=== PATIENT | male | born 1935 | race Caucasian/White ===

== ENCOUNTER 2016-09-06 13:47 | Inpatient (IN) | payer MEDICARE, OTHER ==
[2016-09-06] MEDS ORDERED: NS 0.9% 1000 ML* 1,000 ML IV ONE (15:05)
[2016-09-06 15:18] LABS: Hematocrit 44 % (42-52); Hemoglobin 15.1 g/dl (14.0-18.0); Mean Corpuscular HGB Conc 34 g/dl (31-36); Mean Corpuscular Hemoglobin 31 pg (27-31); Mean Corpuscular Volume 91 fL (80-94); Mean Platelet Volume 9 um3 (7.4-10.4); Red Blood Count 4.86 10^6/ul (4.0-5.4); Red Cell Distribution Width 13 % (10.5-15); White Blood Count 8.6 10^3/ul (3.5-10.8)
[2016-09-06 15:32] LABS: Troponin I 0.01 ng/mL (<0.04)
[2016-09-06 15:37] LABS: Albumin 4.5 g/dL (3.2-5.2); BUN/Creatinine Ratio 32.7 (8-20); Calcium 9.9 mg/dL (8.6-10.3); EGFR African American 82.2 (>60); EGFR Non-African American 63.9 (>60); Globulin 3.4 g/dL (2-4); Potassium 4.4 mmol/L (3.5-5.0); Total Bilirubin 0.7 mg/dL (0.2-1.0); Total Protein 7.9 g/dL (6.4-8.9)
[2016-09-06] MEDS ORDERED: Iohexol 350* (CONTRAST) 500 ML MDV IV ONE (15:45)
[2016-09-06 15:50] LABS: Urine Bacteria Absent (Absent); Urine Bilirubin Negative (Negative); Urine Glucose 1+(50 mg/dL) (Negative); Urine Nitrite Negative (Negative)
[2016-09-06 16:06] LABS: HDL Cholesterol 35.9 mg/dL
--- NOTE | 2016-09-06 16:50 | RAD ---
Indication: Left leg weakness, headache. CT of the brain was performed without IV contrast. There is a large right sided subdural hematoma with acute and chronic components measuring up to 2.8 cm. Midline shift to the left is noted of approximately 11 mm. The left extra-axial spaces are unremarkable. The basilar cisterns are patent. Subfalcine herniation is noted anteriorly. IMPRESSION: There is a moderate to large size right-sided subdural hematoma which is mixed chronic and acute with midline shift towards the left of approximately 12 mm and subfalcine herniation. Findings discussed with Dr. Coelho at 1646 hours.
--- NOTE | 2016-09-06 16:59 | RAD ---
INDICATION: Left leg weakness COMPARISON: There are no prior studies available for comparison. TECHNIQUE: Contiguous axial sections were obtained beginning lower cervical vertebra and continuing through the sacrum. Images were reconstructed in the sagittal and coronal planes. FINDINGS: Multilevel degenerative changes of the thoracic and lumbar spine includes loss of intervertebral disc height. More severe degenerative changes are seen at L4/L5. At L2/L3 there are subchondral lucencies at the endplates that are nonspecific but in the absence of other destructive features are probably more consistent with Schmorl's nodes then intervertebral discitis (sagittal image 27 and 28). There is no definite fracture or dislocation. There is no hyperdense fluid in the thecal canal characteristic of hemorrhage. At the lumbar spine there are varying degrees of mild central canal or neural foraminal stenoses from L2 through L5 consistent with degenerative disc disease. There is atherosclerotic calcification of the abdominal aorta and bilateral visualized iliac arteries. There are emphysematous changes of the lungs. IMPRESSION: 1. Multilevel degenerative changes involving the thoracic and lumbar spine without definite fracture or dislocation. 2. Endplate lucencies at L2/L3 are more consistent with Schmorl's nodes then intervertebral discitis. 3. There are varying degrees of central canal or neural foraminal stenoses from L2 to L5 likely due to degenerative disc disease. Superior characterization of the soft tissues can be made with MRI of the lumbar spine if indicated.
--- NOTE | 2016-09-06 17:13 | RAD ---
Indication: Left leg weakness, headache. Contrast: Administered 83.3 ml of OMNIPAQUE 350 mg/ml CTA of the neck and head was performed after IV contrast administration. Coronal and sagittal reconstructed images were obtained. The great vessels demonstrates minimal atherosclerosis of the left subclavian artery. Innominate artery is otherwise unremarkable. The common carotid artery demonstrates no significant stenosis. The internal carotid artery demonstrates no dissection. No definite atherosclerosis is noted. Minimal calcific plaque is noted in the left carotid bulb. The intracranial carotid arteries demonstrates minimal atherosclerosis in the intracavernous portion of the carotid arteries. The anterior middle cerebral arteries are unremarkable. No aneurysmal dilatation or branch occlusion is identified. Right-sided subdural hematoma is again identified as previously described. IMPRESSION: Right-sided subdural hematoma. Minimal atherosclerosis of the left internal carotid artery. No branch occlusion is noted in the intracranial vessels. The the [place] is otherwise unremarkable with no aneurysmal dilatation.
[2016-09-06] MEDS ORDERED: Allopurinol TAB* 300 MG PO PRN (17:25)
--- NOTE | 2016-09-06 17:59 | RAD ---
Indication: Weakness. 2 views of the chest including dual energy PA views demonstrates no mediastinal shift. Lung borges appear hyperinflated. No pleural fluid, pneumonia or pneumothorax is noted. Comparison is made with previous exam dated March 23, 2010. IMPRESSION: NO ACTIVE CARDIOPULMONARY DISEASE IS NOTED.
--- NOTE | 2016-09-06 18:44 | HP ---
SUPERVISING PHYSICIAN ADDENDUM NOW INCLUDED ON THIS REPORT CC: Dr. Grimaldo * ADMISSION HISTORY AND PHYSICAL: DATE OF ADMISSION: 09/06/16 PRIMARY CARE PROVIDER: Dr. Grimaldo. ADMITTING PROVIDER: NAVEEN Islas. SUPERVISING PHYSICIAN: Connie Rodriguez MD.* (DICTATED BY NAVEEN ISLAS) CHIEF COMPLAINT: Left lower extremity weakness and headache. HISTORY OF PRESENT ILLNESS: This is an 81-year-old gentleman with hypertension , hyperlipidemia, gout, and nonalcoholic steatohepatitis who was referred from his primary care provider's office with complaints of left lower extremity weakness and headache. The patient states that he first noted the left leg weakness about a week ago and has had some difficulty with balance since that time, but has been having intermittent headaches for the last couple of weeks. He states there has been some discomfort in the back of his neck which he thought was contributing to his headaches. He has been intermittently dizzy, especially when going from a sitting to standing position. He denies any changes to his vision. Apart from his left lower extremity weakness, he denies any other acute neurologic changes. Denies chest pain or shortness of breath. No abdominal pain, nausea, or vomiting. No recent illness. He denies any recent trauma or even mild falls or head injury. The patient reports that he is quite active. He exercises nightly with an exercise bike. He has no significant cardiopulmonary history. PAST MEDICAL HISTORY: 1. Hypertension. 2. Hyperlipidemia. 3. Gout. 4. Nonalcoholic steatohepatitis. PAST SURGICAL HISTORY: 1. Left testicle removal for severe orchitis. 2. Tonsillectomy and adenoidectomy. HOME MEDICATIONS: 1. Allopurinol 150 mg p.o. daily. 2. Aspirin 81 mg p.o. daily. 3. Atorvastatin 20 mg p.o. daily. 4. Losartan/hydrochlorothiazide 100/25 mg 1 tablet p.o. daily. 5. Metoprolol succinate 50 mg p.o. daily. 6. Omeprazole 20 mg p.o. daily. 7. Viagra 100 mg p.o. daily as needed. SOCIAL HISTORY: The patient has a brief smoking history, but quit about 45 years ago. Reports only occasional alcohol consumption. He lives at home with his and is a retired communication electronic technician. REVIEW OF SYSTEMS: As noted above in HPI. All other systems are reviewed and considered negative. PHYSICAL EXAMINATION GENERAL: This is a very pleasant elderly gentleman accompanied by his and sister who is in no acute distress. RECENT VITAL SIGNS: Temperature 97.9 degrees Fahrenheit, pulse 80 beats per minute, respiratory rate 20 per minute, oxygen saturation 97% on room air, blood pressure 142/88 mmHg. HEENT: Head is normocephalic, atraumatic. Mucous membranes are pink and moist. He has dentures in place. NECK: Supple, free of lymphadenopathy without significant meningeal signs. RESPIRATORY: Lungs are clear to auscultation without wheezes, crackles, or rhonchi. CARDIOVASCULAR: Heart has a regular rate and rhythm without murmurs, rubs, or gallops. ABDOMEN: Soft and nontender to palpation. EXTREMITIES: The patient has no lower extremity edema. NEUROLOGIC: The patient has a facial tic which he states is chronic for him, especially when he is anxious. Cranial nerves II through XII are otherwise intact. He perhaps has some subtle left upper extremity weakness. No gross sensory changes. Left lower extremity is 4/5 and right lower extremity is 5/5 with DTRs intact and symmetric. PSYCH: The patient is alert and appropriately oriented. LABORATORY DATA: CBC shows white blood cell count of 8600, hemoglobin 15.1 g/dL , and platelet count of 185,000. INR is 0.99. Comprehensive metabolic panel shows a sodium of 136, potassium of 4.4, serum bicarb of 26, BUN 36, creatinine 1.1, random glucose of 188 mg/dL. Lactic acid slightly elevated at 2.5. Total bilirubin and transaminases within normal limits. Troponin negative. Lipids are well controlled with a total cholesterol of 168, LDL of 98, HDL of 35 , and triglycerides 171. Urinalysis shows 1+ blood, trace leukocyte esterase, and 2+ white blood cells. IMAGING: CT of the brain shows moderate to large right frontal subdural hematoma with a 12-mm midline shift. There appears to be both acute and subacute component. CT of the head also demonstrates the same hematoma, but no significant stenosis or aneurysmal changes. CT of the lumbar and thoracic spine shows degenerative changes diffusely, but nothing acute. EKG shows a normal sinus rhythm. Chest x-ray is pending. ASSESSMENT AND PLAN: This is an 81-year-old gentleman with hypertension, hyperlipidemia, gout, and nonalcoholic steatohepatitis who presents at the encouragement of his primary care provider with complaints of headache and left lower extremity weakness with evidence of a moderate to large subdural hematoma. 1. Subdural hematoma with subsequent left lower extremity weakness. Neurosurgeon, Dr. Newman, has been contacted who plans to do tavia hole evacuation tomorrow. The patient's neurologic symptoms are rather subtle at this time. He will be admitted to ICU for close monitoring. Blood pressure will be closely monitored and serial neurologic checks. 2. Preoperative evaluation - the patient has no significant cardiopulmonary disease. His chronic medical conditions appear to be optimized and his exercise tolerance is excellent, especially given his age. His RCRI is in the low risk category scoring only for this being a relatively high risk procedure. He has no other chronic medical conditions that are of significant concern. A chest x-ray is pending at this time, but review of his EKG upon admission is benign. 3. Hypertension - the patient is normotensive at this time. We will continue his home antihypertensives with the exception of his losartan and hydrochlorothiazide in the morning with pending surgical procedure. 4. Hyperlipidemia: Continue the statin. 5. Gout: Continue allopurinol. 6. Nonalcoholic steatohepatitis: No evidence of transaminitis or significant liver impairment. 7. Code status: The patient is full code. 8. Healthcare proxy is his . DISPOSITION: The patient is being admitted to the inpatient status to ICU for close monitoring with pending neurosurgery involvement tomorrow morning with Dr. Newman. NAVEEN ISLAS ADDENDUM: Mr. Weaver is an 81-year-old male who presented to the hospital complaining of headache and left-sided weakness and he was noted to have acute on chronic subdural hematoma. The patient is going to be admitted to the ICU. Dr. Newman was already consulted from Neurosurgery to take the patient to the OR for tavia hole tomorrow morning. For further details of the patient's admission and plan, please see history and physical dictated by NAVEEN Islas on , with which I agree. CONNIE RODRIGUEZ, [place] [id number]/CPS #: [id number] #: [id number] [facility]
--- NOTE | 2016-09-06 20:06 | ED ---
Nahomi Egan Thomas, scribed for Leonard Coelho MD on 09/06/16 at 1446 . Lower Extremity - HPI Summary HPI Summary: The pt is an 81 y/o male referred to the ED from his PCP. The pt says that his leg has been "heavy" for 3-4 days. He experiences difficulty when putting clothing on his L leg. Additionally c/o occasional urinary incontinence and RODNEY. The pt notes that he never experiences RODNEY but since 2 weeks ago he has experienced RODNEY that feels like "plugged sinuses". He also notes facial pain when he moves his head in a particular way. The pt denies arm pain, aphasia, back pain, abdominal pain, visual field loss, and dragging his feet when walking. PMHx HTN. The pt is a former smoker (quit 30 years ago). The pt rarely uses alcohol.. - History of Current Complaint Chief Complaint: EDExtremityLower Stated Complaint: LT LEG NUMBNESS/HEADACHE Hx Obtained From: Patient Onset of Pain: Days - 3-4 Onset/Duration: Days - 3-4 Severity Currently: None Pain Intensity: 0 - "Heavy" not pain Pain Scale Used: 0-10 Numeric Timing: Constant Associated Signs And Symptoms: Positive: Other - POS: Urinary incontinence, RODNEY, facial pain - Allergies/Home Medications Allergies/Adverse Reactions: Allergies Allergy/AdvReac Type Severity Reaction Status Date / Time No Known Allergies Allergy Verified 09/06/16 14:32 Home Medications: Home Medications Allopurinol TAB* [Zyloprim 300 MG TAB*] 150 mg PO DAILY PRN 09/06/16 [History Confirmed 09/06/16] Aspirin EC Low Dose* [Ecotrin EC Low Dose 81 MG*] 81 mg PO DAILY 09/06/16 [ History Confirmed 09/06/16] Atorvastatin* [Lipitor*] 20 mg PO QPM 09/06/16 [History Confirmed 09/06/16] Losartan/HCTZ 100/25 (NF) [Hyzaar 100/25 (NF)] 1 tab PO DAILY 09/06/16 [History Confirmed 09/06/16] Metoprolol Succinate XL TAB* [Toprol XL TAB*] 50 mg PO DAILY 09/06/16 [History Confirmed 09/06/16] Omeprazole CAP* [Prilosec CAP* 20 MG] 20 mg PO DAILY 06/22/17 [History Confirmed 09/06/16] Sildenafil Citrate [Viagra] 100 mg PO DAILY PRN 09/06/16 [History Confirmed ] PMH/Surg Hx/FS Hx/Imm Hx Previously Healthy: No Endocrine/Hematology History: Reports: Hx Diabetes Cardiovascular History: Reports: Hx Hypercholesterolemia, Hx Hypertension Musculoskeletal History: Reports: Hx Gout Infectious Disease History: No Infectious Disease History: Denies: Traveled Outside the [place] in Last 30 Days - Family History Known Family History: Positive: Hypertension - Social History Alcohol Use: Occasionally Substance Use Type: Reports: None Smoking Status (MU): Former Smoker Review of Systems Positive: Other - NEG: visual field loss Negative: Abdominal Pain Positive: incontinence - Urinary Musculoskeletal: Other - NEG: arm pain, back pain Positive: Other - POS: "Heavy" LLE Neurological: Other - POS: facial pain when moving head in a particular way; NEG : aphasia, feet dragging when walking Positive: Headache - "plugged sinuses" All Other Systems Reviewed And Are Negative: Yes Physical Exam - Summary Physical Exam Summary: The patient is well-nourished in no acute distress and in no acute pain. The skin is warm and dry and skin color reflects adequate perfusion. HEENT: The head is normocephalic and atraumatic. The pupils are equal and reactive. The conjunctivae are clear and without drainage. Nares are patent and without drainage. Mouth reveals moist mucous membranes and the throat is without erythema and exudate. The external ears are intact. The ear canals are patent and without drainage. The tympanic membranes are intact. Neck is supple with full range of motion and non-tender. There are no carotid bruits. There is no neck vein distension. Respiratory: Chest is non-tender. Lungs are clear to auscultation and breath sounds are symmetrical and equal. Cardiovascular: Pulses are 2+. Hear is regular rate and rhythm. There is no murmur or rub auscultated. There is no peripheral edema and pulses are symmetrical and equal. Abdomen: Hernia. The abdomen is soft and non-tender. There are normal bowel sounds heard in all four quadrants and there is no organomegaly palpated. Musculoskeletal: There is no back pain noted. Extremities are non-tender with full range of motion. There is good capillary refill. There is no peripheral edema or calf tenderness elicited. Neurological: No facial droop. No weakness or pronator drift in upper extremities. When LLE is picked up, it drifts back down. Able to heel-lacy and finger-nose. Motor weakness in LLE compared to the right. Speech is appropriate. Patient is alert and oriented to person, place and time. Cranial nerves are grossly intact. Deep tendon reflexes are symmetrical and equal in all four extremities. Psychiatric: The patient has an appropriate affect and does not exhibit any anxiety or depression. Triage Information Reviewed: Yes Vital Signs On Initial Exam: Initial Vitals Temp Pulse Resp BP Pulse Ox 97.9 F 80 20 142/88 97 09/06/16 13:56 09/06/16 13:56 09/06/16 13:56 09/06/16 13:56 09/06/16 13:56 Vital Signs Reviewed: Yes - [place] Coma Scale Coma Scale Total: 15 Diagnostics - Vital Signs Vital Signs Temp Pulse Resp BP Pulse Ox 09/06/16 14:20 17 09/06/16 14:18 137/76 09/06/16 14:15 97.8 F 80 18 141/79 98 09/06/16 13:56 97.9 F 80 20 142/88 97 - Laboratory Lab Results: Lab Results 09/06/16 09/06/16 09/06/16 Range/Units 15:05 15:05 15:05 WBC 8.6 (3.5-10.8) 10^3/ul RBC 4.86 (4.0-5.4) 10^6/ul Hgb 15.1 (14.0-18.0) g/dl Hct 44 (42-52) % MCV 91 (80-94) fL MCH 31 (27-31) pg MCHC 34 (31-36) g/dl RDW 13 (10.5-15) % Plt Count 185 (150-450) 10^3/ul MPV 9 (7.4-10.4) um3 Neut % (Auto) 68.5 (38-83) % Lymph % (Auto) 21.2 L (25-47) % [place] % (Auto) 7.1 (1-9) % Eos % (Auto) 1.7 (0-6) % Baso % (Auto) 1.5 (0-2) % Absolute Neuts (auto) 5.9 (1.5-7.7) 10^3/ul Absolute Lymphs (auto) 1.8 (1.0-4.8) 10^3/ul Absolute Monos (auto) 0.6 (0-0.8) 10^3/ul Absolute Eos (auto) 0.1 (0-0.6) 10^3/ul Absolute Basos (auto) 0.1 (0-0.2) 10^3/ul Absolute Nucleated RBC 0 10^3/ul Nucleated RBC % 0 INR (Anticoag Therapy) 0.99 (0.89-1.11) Sodium 136 (133-145) mmol/L Potassium 4.4 (3.5-5.0) mmol/L Chloride 100 L (101-111) mmol/L Carbon Dioxide 26 (22-32) mmol/L Anion Gap 10 (2-11) mmol/L BUN 36 H (6-24) mg/dL Creatinine 1.10 (0.67-1.17) mg/dL Est GFR ( Amer) 82.2 (>60) Est GFR (Non-Af Amer) 63.9 (>60) BUN/Creatinine Ratio 32.7 H (8-20) Glucose 188 H (70-100) mg/dL Lactic Acid (0.5-2.0) mmol/L Calcium 9.9 (8.6-10.3) mg/dL Total Bilirubin 0.70 (0.2-1.0) mg/dL AST 20 (13-39) U/L ALT 18 (7-52) U/L Alkaline Phosphatase 58 (34-104) U/L Troponin I 0.01 (<0.04) ng/mL Total Protein 7.9 (6.4-8.9) g/dL Albumin 4.5 (3.2-5.2) g/dL Globulin 3.4 (2-4) g/dL Albumin/Globulin Ratio 1.3 (1-3) Triglycerides 171 mg/dL Cholesterol 168 mg/dL LDL Cholesterol 98 mg/dL HDL Cholesterol 35.9 mg/dL Urine Color Urine Appearance Urine pH (5-9) Ur Specific [place] (1.010-1.030) Urine Protein (Negative) Urine Ketones (Negative) Urine Blood (Negative) Urine Nitrate (Negative) Urine Bilirubin (Negative) Urine Urobilinogen (Negative) Ur Leukocyte Esterase (Negative) Urine WBC (Auto) (Absent) Urine RBC (Auto) (Absent) Urine Bacteria (Absent) Hyaline Casts (Absent) Urine Glucose (Negative) 09/06/16 09/06/16 Range/Units 15:05 15:27 WBC (3.5-10.8) 10^3/ul RBC (4.0-5.4) 10^6/ul Hgb (14.0-18.0) g/dl Hct (42-52) % MCV (80-94) fL MCH (27-31) pg MCHC (31-36) g/dl RDW (10.5-15) % Plt Count (150-450) 10^3/ul MPV (7.4-10.4) um3 Neut % (Auto) (38-83) % Lymph % (Auto) (25-47) % [place] % (Auto) (1-9) % Eos % (Auto) (0-6) % Baso % (Auto) (0-2) % Absolute Neuts (auto) (1.5-7.7) 10^3/ul Absolute Lymphs (auto) (1.0-4.8) 10^3/ul Absolute Monos (auto) (0-0.8) 10^3/ul Absolute Eos (auto) (0-0.6) 10^3/ul Absolute Basos (auto) (0-0.2) 10^3/ul Absolute Nucleated RBC 10^3/ul Nucleated RBC % INR (Anticoag Therapy) (0.89-1.11) Sodium (133-145) mmol/L Potassium (3.5-5.0) mmol/L Chloride (101-111) mmol/L Carbon Dioxide (22-32) mmol/L Anion Gap (2-11) mmol/L BUN (6-24) mg/dL Creatinine (0.67-1.17) mg/dL Est GFR ( Amer) (>60) Est GFR (Non-Af Amer) (>60) BUN/Creatinine Ratio (8-20) Glucose (70-100) mg/dL Lactic Acid 2.5 H* (0.5-2.0) mmol/L Calcium (8.6-10.3) mg/dL Total Bilirubin (0.2-1.0) mg/dL AST (13-39) U/L ALT (7-52) U/L Alkaline Phosphatase (34-104) U/L Troponin I (<0.04) ng/mL Total Protein (6.4-8.9) g/dL Albumin (3.2-5.2) g/dL Globulin (2-4) g/dL Albumin/Globulin Ratio (1-3) Triglycerides mg/dL Cholesterol mg/dL LDL Cholesterol mg/dL HDL Cholesterol mg/dL Urine Color Yellow Urine Appearance Clear Urine pH 5.0 (5-9) Ur Specific [place] 1.018 (1.010-1.030) Urine Protein Negative (Negative) Urine Ketones Negative (Negative) Urine Blood 1+ H (Negative) Urine Nitrate Negative (Negative) Urine Bilirubin Negative (Negative) Urine Urobilinogen Negative (Negative) Ur Leukocyte Esterase Trace H (Negative) Urine WBC (Auto) 2+(11-20/hpf) H (Absent) Urine RBC (Auto) 2+(6-10/hpf) H (Absent) Urine Bacteria Absent (Absent) Hyaline Casts Present H (Absent) Urine Glucose 1+(50 mg/dl) H (Negative) Result Diagrams: 09/06/16 15:05 09/06/16 15:05 Lab Statement: Any lab studies that have been ordered have been reviewed, and results considered in the medical decision making process. - CT CT L-Spine CT Interpretation: Positive (See Comments) - 1. Multilevel degenerative changes involving the thoracic and lumbar spine without definite fracture or dislocation. 2. Endplate lucencies at L2/L3 are more consistent with Schmorl's nodes then intervertebral discitis. 3. There are varying degrees of central canal or neural foraminal stenoses from L2 to L5 likely due to degenerative disc disease. Superior characterization of the soft tissues can be made with MRI of the lumbar spine if indicated. CT Interpretation Completed By: Radiologist CT T-Spine CT Interpretation: Positive (See Comments) - 1. Multilevel degenerative changes involving the thoracic and lumbar spine without definite fracture or dislocation. 2. Endplate lucencies at L2/L3 are more consistent with Schmorl's nodes then intervertebral discitis. 3. There are varying degrees of central canal or neural foraminal stenoses from L2 to L5 likely due to degenerative disc disease. Superior characterization of the soft tissues can be made with MRI of the lumbar spine if indicated. CT Interpretation Completed By: Radiologist CT Brain CT Interpretation: Positive (See Comments) - There is a moderate to large size right-sided subdural hematoma which is mixed chronic and acute with midline shift towards the left of approximately 12 mm and subfalcine herniation. Findings discussed with Dr. Coelho at [address] Interpretation Completed By: Radiologist CTA Head CT Interpretation: Positive (See Comments) - Right-sided subdural hematoma. Minimal atherosclerosis of the left internal carotid artery. No branch occlusion is noted in the intracranial vessels. The [place] is otherwise unremarkable with no aneurysmal dilatation. CT Interpretation Completed By: Radiologist - EKG 1511 Cardiac Rate: NL - [address] Segment: Non-Specific - Non-specific ST changes EKG Interpretation: Poor R wave progression, LAD, no STEMI National Institutes Of Health - NIH Scale Level of Consciousness: Alert/Keenly Responsive Ask Patient the Month and His/Her Age: Both Correct Ask Pt to Open/Close Eyes and [place]chid Worker/Release Non-Paretic Hand: Both Correctly Best Gaze (Only Horizontal Eye Movement): Normal Visual Field Testing: No Visual Loss Facial Paresis-Pt to Smile & Close Eyes or [place] Symmetry: Normal/Symmetrical Motor Function - Right Arm: No Drift-Holds 10 Seconds Motor Function - Left Arm: No Drift-Holds 10 Seconds Motor Function - Right Leg: No Drift-Holds 10 Seconds Motor Function - Left Leg: Drifts LT 10 seconds Limb Ataxia-Must be out of Proportion to Weakness Present: Absent Sensory (Use Pinprick to Test Arms/Legs/Trunk/Face): Normal Best Language (Describe Picture, Name Items): No Aphasia Dysarthria (Read Several Words): Normal Extinction and Inattention: No Abnormality Total Score: 1 Lower Extremity Course/Dx - Course Assessment/Plan: The pt is an 81 y/o male referred to the ED from his PCP. The pt says that his leg has been "heavy" for 3-4 days. Additionally c/o occasional urinary incontinence and RODNEY. The pt notes that he never experiences RODNEY but since 2 weeks ago he has experienced RODNEY that feels like "plugged sinuses". He also notes facial pain when he moves his head in a particular way. The pt denies arm pain, aphasia, back pain, abdominal pain, visual field loss, and dragging his feet when walking. The pt is a former smoker (quit 30 years ago). The pt rarely uses alcohol. Reviewed old records extensively. EKG reveals no STEMI. CT L-Spine and CT T-Spine reveal "1. Multilevel degenerative changes involving the thoracic and lumbar spine without definite fracture or dislocation. 2. Endplate lucencies at L2/L3 are more consistent with Schmorl's nodes then intervertebral discitis. 3. There are varying degrees of central canal or neural foraminal stenoses from L2 to L5 likely due to degenerative disc disease. Superior characterization of the soft tissues can be made with MRI of the lumbar spine if indicated." Ct [place] reveals "There is a moderate to large size right-sided subdural hematoma which is mixed chronic and acute with midline shift towards the left of approximately 12 mm and subfalcine herniation. " CTA head reveals: "Right-sided subdural hematoma. Minimal atherosclerosis of the left internal carotid artery. No branch occlusion is noted in the intracranial vessels. The [place] is otherwise unremarkable with no aneurysmal dilatation." Discussed care of patient with Michael Bermudez who accepts pt for admission. Discussed care with Dr. Newman who agrees with hospitalist admission and agrees to later surgery. Pt will be admitted to hospitalist services with Dx of right subdural hematoma with 30 minutes of critical care time. Patient agrees and understands. - Diagnoses Differential Diagnosis/HQI/PQRI: Positive: Other - cva, intracerebral bleed, subdural hematoma, spinal stenosis, hnp Provider Diagnoses: right subdural hematoma - Physician Notifications Discussed Care Of Patient With: Michael Bermudez Time Discussed With Above Provider: 16:47 Instructed by Provider To: Other - Accepts pt for admission. Called out to Dr. Newman at 1648. Discussed care of patient with Dr. Newman at 1650 who agrees with admission of the patient and that he will operate later. - Critical Care Time Critical Care Time: 30-74 min - 30 minutes Discharge - Discharge Plan Condition: Stable Disposition: ADMITTED TO [facility] documentation as recorded by the Nahomi reyes Thomas accurately reflects the service I personally performed and the decisions made by me, Leonard Coelho MD.
[2016-09-06] MEDS: Atorvastatin* 20 MG TAB PO SCH (20:31)
[2016-09-06] MEDS ORDERED: Acetaminophen TAB* 325 MG ONE (23:40)
--- NOTE | 2016-09-07 02:50 | HP ---
HISTORY AND PHYSICAL:* ADDENDUM: Mr. Weaver is an 81-year-old male, who presented to the hospital complaining of headache and left-sided weakness and he was noted to have acute on chronic subdural hematoma. The patient is going to be admitted to the ICU. Dr. Newman was already consulted from Neurosurgery to take the patient to the OR for tavia hole tomorrow morning. For further details of the patient's admission and plan, please see history and physical dictated by NAVEEN Arrington on 09/04/16, with which I agree. [id number]/CPS #: [id number] MTDD
[2016-09-07 06:17] LABS: Hematocrit 43 % (42-52); Hemoglobin 14.5 g/dl (14.0-18.0); Mean Corpuscular HGB Conc 34 g/dl (31-36); Mean Corpuscular Hemoglobin 31 pg (27-31); Mean Corpuscular Volume 91 fL (80-94); Mean Platelet Volume 9 um3 (7.4-10.4); Red Blood Count 4.66 10^6/ul (4.0-5.4); Red Cell Distribution Width 13 % (10.5-15); White Blood Count 8.9 10^3/ul (3.5-10.8)
[2016-09-07 06:29] LABS: BUN/Creatinine Ratio 26.9 (8-20); EGFR African American 87.7 (>60); EGFR Non-African American 68.2 (>60); Potassium 4.6 mmol/L (3.5-5.0)
[2016-09-07] MEDS ORDERED: Phenytoin IV(*) 1,000 MG in NS 0.9% 250 ML* 250 ML IV ONE (07:50)
--- NOTE | 2016-09-07 07:50 | PN ---
Progress Note - Progress Note Date of Service: 09/07/16 SOAP: Subjective: [] Patient admitted last night with large right sided subdural Presented with headache and LLE weakness present for at least a week No history of trauma,no anticoagulants Objective: []Dense paresis LLE Awake ,alert Assessment: []CT shows large chronic SDH with shift Plan: []Preop discussion held with patient Proposed procedure of tavia hole drainage discussed in detail. Risks of surgery including bleeding, infection, numbness,seizures and potential need for further surgery discussed
--- NOTE | 2016-09-07 10:04 | PN ---
Subjective Date of Service: 09/07/16 Interval History: This is an 81 yo gentleman admitted yesterday with SDH. Patient reports he got good sleep last night, his RODNEY resolved with APAP. He denies new weakness. Nursing noted that he had a change in MS after receiving Dilantin bolus this am , given pre-operatively. Patient was lethargic and his eyes rolled back in his head, but was easily aroused and responsive. Objective Active Medications: Acetaminophen (Tylenol Tab*) 650 mg PO Q6H PRN PRN Reason: FEVER/PAIN Allopurinol (Zyloprim Tab*) 150 mg PO DAILY PRN PRN Reason: PAIN/INFLAMMATION Atorvastatin Calcium (Lipitor*) 20 mg PO QPM LUIS ANGEL Last Admin: 09/06/16 20:31 Dose: 20 mg Metoprolol Succinate (Toprol Xl Tab*) 50 mg PO DAILY LUIS ANGEL Omeprazole (Prilosec Cap*) 20 mg PO DAILY LUIS ANGEL Vital Signs: Temp Pulse Resp BP Pulse Ox 98.3 F 66 16 112/68 95 09/07/16 07:44 09/07/16 09:42 09/07/16 09:42 09/07/16 09:45 09/07/16 09:42 Oxygen Devices in Use Now: Nasal Cannula Appearance: Elderly gentleman who appears lethargic, but in NAD Neck: NL Appearance and Movements; NL JVP Respiratory: Symmetrical Chest Expansion and Respiratory Effort, Clear to Auscultation Cardiovascular: NL Sounds; No Murmurs; No JVD, RRR Abdominal: NL Sounds; No Tenderness; No Distention Extremities: No Edema Skin: No Rash or Ulcers Neurological: Alert and Oriented x 3, - - dense weakness of L side 1-2/5 strength in upper and lower extremities with some neglect Result Diagrams: 09/07/16 06:00 09/07/16 06:00 Additional Lab and Data: . Diagnostic Imaging: Ct brain - mod to lg R frontal SDH with 12mm midline shift CTA head - SDH, no sig stenosis, branch occlusion or aneurysm CXR - NAD EKG - NSR Assess/Plan/Problems-Billing Assessment: This is an 81 yo gentleman with HTN, HLD, gout and MARCELINO who presented with LLE weakness and RODNEY with SDH noted on CT. - Patient Problems (1) SDH (subdural hematoma) Comment: Mod to lg R frontal SDH with assoc edema and 12mm midline shift, appears to be subacute but evidence of additional new bleeding on CT Weakness as progressed overnight with some mental status changes this am that may be explained by sedation after receiving Dilantin load No seizure activity Plan for tavia hole with Dr Newman today (2) HTN (hypertension) Comment: Holding losartan/HCTZ perioperatively Cont BB Normotensive at this time (3) HLD (hyperlipidemia) (4) MARCELINO (nonalcoholic steatohepatitis) Comment: No evidence of significant liver impairment (5) Gout Comment: No active flare (6) Full code status (7) DVT prophylaxis Comment: SCDs, chemical prophylaxis contraindicated Status and Disposition: Inpatient. Pending neurosurgery intervention. Requires continued ICU care
--- NOTE | 2016-09-07 10:14 | PN ---
Progress Note - Progress Note Date of Service: 09/07/16 SOAP: Subjective: This is a 81 yo white male with HTN, hyperlipidemia, gout, nonalcoholic steatohepatitis, that presented with 7-10 days of L sided weakness and RODNEY with large right subdural hematoma on CT. He reports RODNEY has subsided with PRN Tylenol and that weakness has improved some since yesterday. Dr. Newman in to talk with patient for planned surgery this morning for tavia hole drainage. He denies pain, numbness/tingling, changes in vision. He has noticed dizziness with turning his head quickly and getting up. He remains in ICU with VS stable. Active medications: Acetaminophen (Tylenol Tab*) 650 mg PO Q6H PRN PRN Reason: FEVER/PAIN Allopurinol (Zyloprim Tab*) 150 mg PO DAILY PRN PRN Reason: PAIN/INFLAMMATION Atorvastatin Calcium (Lipitor*) 20 mg PO QPM [facility] Last Admin: 09/06/16 20:31 Dose: 20 mg Metoprolol Succinate (Toprol Xl Tab*) 50 mg PO DAILY [facility] Omeprazole (Prilosec Cap*) 20 mg PO DAILY [facility] Allergies Allergy/AdvReac Type Severity Reaction Status Date / Time No Known Allergies Allergy Verified 09/06/16 14:32 Objective: Vital Signs: Temp Pulse Resp BP Pulse Ox 98.3 F 66 16 112/68 95 09/07/16 07:44 09/07/16 09:42 09/07/16 09:42 09/07/16 09:45 09/07/16 09:42 General: 81 yo male appears stated age in NAD. HEENT: Head is atraumatic, normocephalic. Mucus membranes are pink and moist with dentures removed for surgery. Lungs: Chest symmetric and lungs clear to auscultation throughout. Heart: RRR no murmurs, rubs, or gallops. Abdomen: normoactive bowel sounds, soft and nontender Extremities: Warm without edema Neuro: Alert and Oriented X3. Pupils are reactive to direct and consensual light. EOMI. Finger to nose intact. Sensation intact bilaterally. 3/5 weakness on left side arm, leg, and hand throughout. Strength is 5/5 on the right. Romberg and pronator drift negative. WBC 8.9 10^3/ul (3.5-10.8) 09/07/16 06:00 RBC 4.66 10^6/ul (4.0-5.4) 09/07/16 06:00 Hgb 14.5 g/dl (14.0-18.0) 09/07/16 06:00 Hct 43 % (42-52) 09/07/16 06:00 MCV 91 fL (80-94) 09/07/16 06:00 MCH 31 pg (27-31) 09/07/16 06:00 MCHC 34 g/dl (31-36) 09/07/16 06:00 RDW 13 % (10.5-15) 09/07/16 06:00 Plt Count 159 10^3/ul (150-450) 09/07/16 06:00 MPV 9 um3 (7.4-10.4) 09/07/16 06:00 Neut % (Auto) 68.5 % (38-83) 09/06/16 15:05 Lymph % (Auto) 21.2 % (25-47) L 09/06/16 15:05 Edmunds % (Auto) 7.1 % (1-9) 09/06/16 15:05 Eos % (Auto) 1.7 % (0-6) 09/06/16 15:05 Baso % (Auto) 1.5 % (0-2) 09/06/16 15:05 Absolute Neuts (auto) 5.9 10^3/ul (1.5-7.7) 09/06/16 15:05 Absolute Lymphs (auto) 1.8 10^3/ul (1.0-4.8) 09/06/16 15:05 Absolute Monos (auto) 0.6 10^3/ul (0-0.8) 09/06/16 15:05 Absolute Eos (auto) 0.1 10^3/ul (0-0.6) 09/06/16 15:05 Absolute Basos (auto) 0.1 10^3/ul (0-0.2) 09/06/16 15:05 Absolute Nucleated RBC 0 10^3/ul 09/06/16 15:05 Nucleated RBC % 0 09/06/16 15:05 INR (Anticoag Therapy) 0.99 (0.89-1.11) 09/06/16 15:05 Sodium 137 mmol/L (133-145) 09/07/16 06:00 Potassium 4.6 mmol/L (3.5-5.0) 09/07/16 06:00 Chloride 102 mmol/L (101-111) 09/07/16 06:00 Carbon Dioxide 26 mmol/L (22-32) 09/07/16 06:00 Anion Gap 9 mmol/L (2-11) 09/07/16 06:00 BUN 28 mg/dL (6-24) H 09/07/16 06:00 Creatinine 1.04 mg/dL (0.67-1.17) 09/07/16 06:00 Est GFR ( Amer) 87.7 (>60) 09/07/16 06:00 Est GFR (Non-Af Amer) 68.2 (>60) 09/07/16 06:00 BUN/Creatinine Ratio 26.9 (8-20) H 09/07/16 06:00 Glucose 189 mg/dL (70-100) H 09/07/16 06:00 Hemoglobin A1c 8.0 % (Less than 6.0) H 09/06/16 15:05 Lactic Acid 1.6 mmol/L (0.5-2.0) 09/07/16 00:30 Calcium 10.0 mg/dL (8.6-10.3) 09/07/16 06:00 Total Bilirubin 0.70 mg/dL (0.2-1.0) 09/06/16 15:05 AST 20 U/L (13-39) 09/06/16 15:05 ALT 18 U/L (7-52) 09/06/16 15:05 Alkaline Phosphatase 58 U/L (34-104) 09/06/16 15:05 Troponin I 0.01 ng/mL (<0.04) 09/06/16 15:05 Total Protein 7.9 g/dL (6.4-8.9) 09/06/16 15:05 Albumin 4.5 g/dL (3.2-5.2) 09/06/16 15:05 Globulin 3.4 g/dL (2-4) 09/06/16 15:05 Albumin/Globulin Ratio 1.3 (1-3) 09/06/16 15:05 Triglycerides 171 mg/dL 09/06/16 15:05 Cholesterol 168 mg/dL 09/06/16 15:05 LDL Cholesterol 98 mg/dL 09/06/16 15:05 HDL Cholesterol 35.9 mg/dL 09/06/16 15:05 Urine Color Yellow 09/06/16 15:27 Urine Appearance Clear 09/06/16 15:27 Urine pH 5.0 (5-9) 09/06/16 15:27 Ur Specific [place] 1.018 (1.010-1.030) 09/06/16 15:27 Urine Protein Negative (Negative) 09/06/16 15:27 Urine Ketones Negative (Negative) 09/06/16 15:27 Urine Blood 1+ (Negative) H 09/06/16 15:27 Urine Nitrate Negative (Negative) 09/06/16 15:27 Urine Bilirubin Negative (Negative) 09/06/16 15:27 Urine Urobilinogen Negative (Negative) 09/06/16 15:27 Ur Leukocyte Esterase Trace (Negative) H 09/06/16 15:27 Urine WBC (Auto) 2+(11-20/hpf) (Absent) H 09/06/16 15:27 Urine RBC (Auto) 2+(6-10/hpf) (Absent) H 09/06/16 15:27 Urine Bacteria Absent (Absent) 09/06/16 15:27 Hyaline Casts Present (Absent) H 09/06/16 15:27 Urine Glucose 1+(50 mg/dl) (Negative) H 09/06/16 15:27 CXR: NAD Head CTA: R moderate to large subdural, with no occlusions head CT: Large R subdural with midline shift towards the left approximately 12 mm. EKG: Normal sius rhythm Assessment/ Plan: This is a 81 yo white male with HTN, hyperlipidemia, gout, nonalcoholic steatohepatitis, that presented with 7-10 days of L sided weakness and RODNEY with large right subdural hematoma on CT 1) Right subdural hematoma: Large subdural on the right side with 12 mm midline shift. Plan on surgery today with Dr. Newman for tavia hole drainage. Weakness and RODNEY since improved since overnight. 2) HTN: Hold patient's Losartan/HCTZ at this time VS are currently WNL. Cont Metoprolol 3) Hyperlipidemia: Cont Statin. 4) Gout: Cont Allopurinol. No active flare 5) Nonalcoholic steatohepatitis: Liver function WNL 6) DVT Prophylaxis: CI pending surgical intervention. 7) Code Status: Full code Disposition: Surgical intervention and reture to ICU.
[2016-09-07] MEDS ORDERED: Thrombin 5,000 UNITS* 1 APPLIC KIT - topical use - TOPICAL ONE (10:21)
[2016-09-07] MEDS ORDERED: Lidocaine 1% MPF wEPI 200,000* 30 ML SDV ONE (10:21)
[2016-09-07] MEDS ORDERED: ceFAZolin 2 GM PREMIX(*) 2 GM/50 ML BAG IVPB ONE (10:39)
[2016-09-07] MEDS ORDERED: Remifentanil* 2 MG VIAL ONE (11:02)
[2016-09-07] MEDS ORDERED: fentaNYL* 50 MCG/ML 2 ML VIAL (100 MCG VIAL) ONE (11:02)
[2016-09-07] MEDS ORDERED: Rocuronium* 10 MG/ML VIAL ONE (11:02)
[2016-09-07] MEDS ORDERED: Succinylcholine* 20 MG/ML 10 ML VIAL ONE (11:02)
[2016-09-07] MEDS ORDERED: Lidocaine 2% PF * 5 ML VIAL ONE ×2 (11:02→11:06)
[2016-09-07] MEDS ORDERED: Propofol* 10 MG/ML 20 ML BTL IV PUSH ONE (11:02)
[2016-09-07] MEDS: Omeprazole CAP* 20 MG PO SCH (11:35)
[2016-09-07] MEDS: Metoprolol Succinate XL TAB* 50 MG PO SCH (11:35)
[2016-09-07] MEDS ORDERED: Phenylephrine IV* 40 MCG/ML 10 ML SYRINGE ONE (11:36)
[2016-09-07] MEDS ORDERED: EPHEDrine (Pressors)* 50 MG/ML VIAL ONE (11:56)
[2016-09-07] MEDS ORDERED: HYDROcodone/ACETAMIN 5-325 MG* 1 TAB PO PRN (12:17)
[2016-09-07] MEDS ORDERED: Morphine INJ* 2 MG/ML 1 ML SYRINGE IV PRN (12:18)
[2016-09-07] MEDS ORDERED: Acetaminophen TAB* 325 MG PO PRN (12:47)
[2016-09-07] MEDS ORDERED: Ondansetron INJ* 2 MG/ML VIAL IV PRN ×2 (12:47→13:19)
[2016-09-07] MEDS: Phenytoin CAP(*) 100 MG CAP.ER PO SCH ×2 (14:29→21:14)
[2016-09-07 15:02] LABS: BUN/Creatinine Ratio 24.7 (8-20); Calcium 9.1 mg/dL (8.6-10.3); EGFR African American 95.1 (>60); EGFR Non-African American 73.9 (>60); Potassium 4.2 mmol/L (3.5-5.0)
--- NOTE | 2016-09-07 15:16 | PN ---
Hospitalist Progress Note Patient was re-evaluated postoperatively. He was alert without c/o RODNEY. He had near full strength in previously affected extremities. No new complaints.
[2016-09-07] MEDS: Acetaminophen TAB* 325 MG PO PRN ×2 (16:34→22:45)
[2016-09-07] MEDS: Atorvastatin* 20 MG TAB PO SCH (21:14)
[2016-09-08 05:56] LABS: BUN/Creatinine Ratio 19.3 (8-20); Calcium 9.4 mg/dL (8.6-10.3); EGFR African American 106.4 (>60); EGFR Non-African American 82.7 (>60)
[2016-09-08] MEDS: Acetaminophen TAB* 325 MG PO PRN ×3 (07:22→21:08)
[2016-09-08] MEDS: Omeprazole CAP* 20 MG PO SCH (07:23)
[2016-09-08] MEDS: Phenytoin CAP(*) 100 MG CAP.ER PO SCH ×3 (07:23→21:08)
[2016-09-08] MEDS: Metoprolol Succinate XL TAB* 50 MG PO SCH (07:24)
--- NOTE | 2016-09-08 07:41 | PN ---
Subjective Date of Service: 09/08/16 Interval History: Mild headache relieved by APAP. Pt feels L leg at about full strength. No new c/o. Objective Active Medications: Acetaminophen (Tylenol Tab*) 650 mg PO Q6H PRN PRN Reason: FEVER/PAIN Last Admin: 09/08/16 07:22 Dose: 650 mg Hydrocodone Bitart/Acetaminophen ([place] 5-325 Tab*) 1 tab PO Q4H PRN PRN Reason: PAIN Allopurinol (Zyloprim Tab*) 150 mg PO DAILY PRN PRN Reason: PAIN/INFLAMMATION Atorvastatin Calcium (Lipitor*) 20 mg PO QPM [facility] Last Admin: 09/07/16 21:14 Dose: 20 mg Lactated Ringer's (Lactated Ringers 1000 Ml Bag*) 1,000 mls @ 75 mls/hr IV PER RATE [facility] Last Admin: 09/08/16 03:10 Dose: 75 mls/hr Metoprolol Succinate (Toprol Xl Tab*) 50 mg PO DAILY [facility] Last Admin: 09/08/16 07:24 Dose: 50 mg Morphine Sulfate (Morphine Inj (Syringe)*) 2 mg IV Q4H PRN PRN Reason: PAIN - MILD Omeprazole (Prilosec Cap*) 20 mg PO DAILY [facility] Last Admin: 09/08/16 07:23 Dose: 20 mg Ondansetron HCl (Zofran Inj*) 4 mg IV Q6H PRN PRN Reason: NAUSEA Phenytoin Sodium (Dilantin Cap(*)) 100 mg PO TID [facility] Last Admin: 09/08/16 07:23 Dose: 100 mg Vital Signs 09/07/16 09/07/16 09/07/16 07:44 08:00 09:00 Temperature 98.3 F Pulse Rate 87 81 Respiratory 18 18 Rate Blood Pressure 143/90 133/85 (mmHg) O2 Sat by Pulse 97 98 Oximetry 09/07/16 09/07/16 09/07/16 09:38 09:42 09:45 Temperature Pulse Rate 67 66 Respiratory 20 16 Rate Blood Pressure 118/66 117/63 112/68 (mmHg) O2 Sat by Pulse 92 95 Oximetry 09/07/16 09/07/16 09/07/16 10:00 10:15 10:30 Temperature Pulse Rate 65 71 65 Respiratory 14 14 17 Rate Blood Pressure 120/53 129/64 125/63 (mmHg) O2 Sat by Pulse 95 97 98 Oximetry 09/07/16 09/07/16 09/07/16 10:45 11:00 12:23 Temperature Pulse Rate 67 72 Respiratory 18 17 Rate Blood Pressure 123/63 126/66 141/79 (mmHg) O2 Sat by Pulse 98 99 Oximetry 09/07/16 09/07/16 09/07/16 12:28 12:30 12:35 Temperature 98.6 F Pulse Rate 91 92 89 Respiratory 18 16 19 Rate Blood Pressure 137/78 128/71 139/80 (mmHg) O2 Sat by Pulse 99 98 98 Oximetry 09/07/16 09/07/16 09/07/16 12:40 12:45 13:00 Temperature Pulse Rate 89 85 87 Respiratory 23 17 22 Rate Blood Pressure 140/81 139/71 131/73 (mmHg) O2 Sat by Pulse 100 99 98 Oximetry 09/07/16 09/07/16 09/07/16 13:15 13:30 13:40 Temperature Pulse Rate 83 87 89 Respiratory 17 19 18 Rate Blood Pressure 132/73 120/74 120/74 (mmHg) O2 Sat by Pulse 98 97 99 Oximetry 09/07/16 09/07/16 09/07/16 13:45 14:00 14:15 Temperature Pulse Rate 89 88 90 Respiratory 20 18 18 Rate Blood Pressure 134/71 145/74 134/77 (mmHg) O2 Sat by Pulse 99 98 98 Oximetry 09/07/16 09/07/16 09/07/16 14:30 15:00 15:29 Temperature 97.8 F Pulse Rate 95 96 Respiratory 21 17 Rate Blood Pressure 132/85 136/90 (mmHg) O2 Sat by Pulse 98 98 Oximetry 09/07/16 09/07/16 09/07/16 15:30 16:00 17:00 Temperature Pulse Rate 92 91 88 Respiratory 16 18 14 Rate Blood Pressure 134/76 126/70 142/80 (mmHg) O2 Sat by Pulse 95 97 97 Oximetry 09/07/16 09/07/16 09/07/16 18:00 19:00 19:37 Temperature 98.8 F Pulse Rate 85 91 Respiratory 18 24 Rate Blood Pressure 138/82 146/116 (mmHg) O2 Sat by Pulse 97 98 Oximetry 09/07/16 09/07/16 09/07/16 20:00 21:00 22:00 Temperature Pulse Rate 87 94 89 Respiratory 14 17 14 Rate Blood Pressure 150/82 156/87 155/90 (mmHg) O2 Sat by Pulse 97 98 96 Oximetry 09/07/16 09/08/16 09/08/16 23:00 00:00 00:01 Temperature 99.3 F Pulse Rate 95 85 85 Respiratory 22 20 20 Rate Blood Pressure 155/93 140/90 (mmHg) O2 Sat by Pulse 95 97 96 Oximetry 09/08/16 09/08/16 09/08/16 00:18 01:00 02:00 Temperature Pulse Rate 82 81 85 Respiratory 18 16 20 Rate Blood Pressure 142/97 143/89 (mmHg) O2 Sat by Pulse 98 96 95 Oximetry 09/08/16 09/08/16 09/08/16 03:00 04:00 05:00 Temperature 99.5 F Pulse Rate 83 85 Respiratory 14 23 18 Rate Blood Pressure 149/88 154/91 (mmHg) O2 Sat by Pulse 97 96 Oximetry 09/08/16 09/08/16 09/08/16 05:13 05:26 06:00 Temperature Pulse Rate 102 93 93 Respiratory 18 19 25 Rate Blood Pressure 149/87 157/81 (mmHg) O2 Sat by Pulse 94 93 92 Oximetry Oxygen Devices in Use Now: None Appearance: Alert, head partly up in ICU bed. In good spirits. Looks comfortable. Eyes: No Scleral Icterus Ears/Nose/Mouth/Throat: Clear Oropharnyx, - - Subdural drain R side of head Neck: NL Appearance and Movements; NL JVP, No Thyroid Enlargement, Masses Respiratory: Symmetrical Chest Expansion and Respiratory Effort, Clear to Auscultation, Clear to Percussion Cardiovascular: NL Sounds; No Murmurs; No JVD, RRR, No Edema, - Extremities: No Edema, No Clubbing, Cyanosis, - Neurological: Alert and Oriented x 3, NL Sensation - Full strength both legs. L interactive media director sl weaker than R. No tremor. Result Diagrams: 09/07/16 06:00 09/08/16 05:25 Additional Lab and Data: . Diagnostic Imaging: Ct brain - mod to lg R frontal SDH with 12mm midline shift CTA head - SDH, no sig stenosis, branch occlusion or aneurysm CXR - NAD EKG - NSR Assess/Plan/Problems-Billing Assessment: This is an 81 yo gentleman with HTN, HLD, gout and MARCELINO who presented with LLE weakness and RODNEY with SDH noted on CT. - Patient Problems (1) SDH (subdural hematoma) Current Visit: Yes Status: Acute Code(s): I62.00 - NONTRAUMATIC SUBDURAL HEMORRHAGE, UNSPECIFIED SNOMED Code(s): 30304121 Comment: Good result from tavia hole evacuation. Continue prophylactic phenytoin. (2) HTN (hypertension) Current Visit: Yes Status: Acute Code(s): I10 - ESSENTIAL (PRIMARY) HYPERTENSION SNOMED Code(s): 93671524 Comment: Add losartan at half his home dose. Hold thiazide. Not Na+ 132. (3) HLD (hyperlipidemia) Current Visit: Yes Status: Acute Code(s): E78.5 - HYPERLIPIDEMIA, UNSPECIFIED SNOMED Code(s): 06299471 Comment: Continue statin. (4) Gout Current Visit: Yes Status: Acute Code(s): M10.9 - GOUT, UNSPECIFIED SNOMED Code(s): 63819909 Comment: Continue allopurinol. (5) MARCELINO (nonalcoholic steatohepatitis) Current Visit: Yes Status: Acute Code(s): K75.81 - NONALCOHOLIC STEATOHEPATITIS (MARCELINO) SNOMED Code(s): 734721423 Comment: No evidence of significant liver impairment. INR wnl 09/06/16. Status and Disposition: Inpatient. Pending neurosurgery intervention. Requires continued ICU care
--- NOTE | 2016-09-08 08:10 | RAD ---
INDICATION: Right subdural hematoma status post drainage. COMPARISON: Comparison is made with a prior CT of the brain from September 06, 2016. TECHNIQUE: Contiguous axial sections of the brain were obtained from the skull base to the vertex without contrast. FINDINGS: There is a subdural hematoma present on the right side adjacent to the right frontal and parietal lobes. The patient is status post placement of a tavia hole in the right frontal bone and a subdural drain. There are both acute and chronic hemorrhagic components present and air within the subdural collection. The subdural collection measures up to 1.8 cm in thickness and has decreased from the prior exam and previously measured 2.8 cm in thickness. There is mass effect with compression of the right lateral ventricle and approximately 0.6 cm of subfalcine herniation which has improved significantly from the prior exam and previously measured 1.2 cm. IMPRESSION: STATUS POST PLACEMENT OF A DRAIN IN THE RIGHT SUBDURAL HEMATOMA WITH INTERVAL DECREASE IN SIZE OF THE HEMATOMA AND THE DEGREE OF SUBFALCINE HERNIATION DESCRIBED.
[2016-09-08] MEDS: Losartan TAB* 25 MG PO SCH (08:50)
[2016-09-08] MEDS: Atorvastatin* 20 MG TAB PO SCH (17:50)
[2016-09-09 06:25] LABS: BUN/Creatinine Ratio 21.3 (8-20); Calcium 9.4 mg/dL (8.6-10.3); EGFR Non-African American 81.6 (>60); Potassium 4.1 mmol/L (3.5-5.0)
--- NOTE | 2016-09-09 07:52 | PN ---
Subjective Date of Service: 09/09/16 Interval History: No new c/o. No headache. Feels strong in all extremities. Objective Active Medications: Acetaminophen (Tylenol Tab*) 650 mg PO Q6H PRN PRN Reason: FEVER/PAIN Last Admin: 09/08/16 21:08 Dose: 650 mg Hydrocodone Bitart/Acetaminophen ([place] 5-325 Tab*) 1 tab PO Q4H PRN PRN Reason: PAIN Allopurinol (Zyloprim Tab*) 150 mg PO DAILY PRN PRN Reason: PAIN/INFLAMMATION Atorvastatin Calcium (Lipitor*) 20 mg PO QPM [facility] Last Admin: 09/08/16 17:50 Dose: 20 mg Losartan Potassium (Cozaar Tab*) 50 mg PO DAILY [facility] Last Admin: 09/08/16 08:50 Dose: 50 mg Metoprolol Succinate (Toprol Xl Tab*) 50 mg PO DAILY [facility] Last Admin: 09/08/16 07:24 Dose: 50 mg Morphine Sulfate (Morphine Inj (Syringe)*) 2 mg IV Q4H PRN PRN Reason: PAIN - MILD Omeprazole (Prilosec Cap*) 20 mg PO DAILY [facility] Last Admin: 09/08/16 07:23 Dose: 20 mg Ondansetron HCl (Zofran Inj*) 4 mg IV Q6H PRN PRN Reason: NAUSEA Phenytoin Sodium (Dilantin Cap(*)) 100 mg PO TID [facility] Last Admin: 09/08/16 21:08 Dose: 100 mg Vital Signs 09/08/16 09/08/16 09/08/16 08:00 09:00 09:04 Temperature 98.9 F Pulse Rate 86 Respiratory 17 23 19 Rate Blood Pressure 155/87 138/48 (mmHg) O2 Sat by Pulse 93 Oximetry 09/08/16 09/08/16 09/08/16 10:00 11:00 11:07 Temperature 98.5 F Pulse Rate 86 78 Respiratory 16 17 Rate Blood Pressure 122/69 109/57 (mmHg) O2 Sat by Pulse 94 95 Oximetry 09/08/16 09/08/16 09/08/16 11:55 12:00 13:00 Temperature Pulse Rate 97 Respiratory 20 21 16 Rate Blood Pressure 132/81 (mmHg) O2 Sat by Pulse 95 Oximetry 09/08/16 09/08/16 09/08/16 13:05 14:00 15:00 Temperature Pulse Rate 95 89 86 Respiratory 23 17 17 Rate Blood Pressure 112/70 106/59 100/62 (mmHg) O2 Sat by Pulse 96 93 92 Oximetry 09/08/16 09/08/16 09/08/16 15:23 16:00 16:10 Temperature 97.6 F Pulse Rate 83 Respiratory 21 17 Rate Blood Pressure 123/71 (mmHg) O2 Sat by Pulse 94 Oximetry 09/08/16 09/08/16 09/08/16 17:00 18:00 19:00 Temperature Pulse Rate 94 86 81 Respiratory 17 19 17 Rate Blood Pressure 106/67 115/65 100/63 (mmHg) O2 Sat by Pulse 96 95 95 Oximetry 09/08/16 09/08/16 09/08/16 19:22 19:34 20:00 Temperature 100.2 F Pulse Rate 80 Respiratory 17 19 Rate Blood Pressure 106/63 (mmHg) O2 Sat by Pulse 94 Oximetry 09/08/16 09/08/16 09/08/16 21:00 22:00 23:00 Temperature Pulse Rate 84 75 76 Respiratory 20 13 22 Rate Blood Pressure 127/83 112/69 119/71 (mmHg) O2 Sat by Pulse 94 94 93 Oximetry 09/08/16 09/08/16 09/09/16 23:09 23:53 00:00 Temperature 99.4 F Pulse Rate 75 70 Respiratory 18 14 Rate Blood Pressure (mmHg) O2 Sat by Pulse 92 95 Oximetry 09/09/16 09/09/16 09/09/16 00:01 01:00 02:00 Temperature Pulse Rate 69 68 74 Respiratory 17 14 15 Rate Blood Pressure 119/85 112/69 116/69 (mmHg) O2 Sat by Pulse 95 95 93 Oximetry 09/09/16 09/09/16 09/09/16 03:00 04:00 05:00 Temperature 99.0 F Pulse Rate 75 80 Respiratory 18 13 13 Rate Blood Pressure 125/70 131/72 109/71 (mmHg) O2 Sat by Pulse 94 93 Oximetry 09/09/16 09/09/16 06:00 07:32 Temperature 98.2 F Pulse Rate 81 Respiratory 15 Rate Blood Pressure 128/88 (mmHg) O2 Sat by Pulse 93 Oximetry Oxygen Devices in Use Now: None Appearance: Alert, supine in ICU bed. In good spirits. Looks comfortable. Drain in R frontal tavia hole. Eyes: No Scleral Icterus Neurological: Alert and Oriented x 3, NL Sensation - Strength good and symmetric UE's and LE's. Result Diagrams: 09/07/16 06:00 09/09/16 05:41 Additional Lab and Data: . Diagnostic Imaging: Ct brain - mod to lg R frontal SDH with 12mm midline shift CTA head - SDH, no sig stenosis, branch occlusion or aneurysm CXR - NAD EKG - NSR Assess/Plan/Problems-Billing Assessment: This is an 81 yo gentleman with HTN, HLD, gout and MARCELINO who presented with LLE weakness and RODNEY with SDH noted on CT. - Patient Problems (1) SDH (subdural hematoma) Current Visit: Yes Status: Acute Code(s): I62.00 - NONTRAUMATIC SUBDURAL HEMORRHAGE, UNSPECIFIED SNOMED Code(s): 65330708 Comment: Good result from tavia hole evacuation. Continue prophylactic phenytoin. Level ordered for 09/10. (2) HTN (hypertension) Current Visit: Yes Status: Acute Code(s): I10 - ESSENTIAL (PRIMARY) HYPERTENSION SNOMED Code(s): 57398619 Comment: Continue losartan at half his home dose. Hold thiazide. Note Na+ 132 agan 09/09. (3) HLD (hyperlipidemia) Current Visit: Yes Status: Acute Code(s): E78.5 - HYPERLIPIDEMIA, UNSPECIFIED SNOMED Code(s): 13691175 Comment: Continue statin. (4) Gout Current Visit: Yes Status: Acute Code(s): M10.9 - GOUT, UNSPECIFIED SNOMED Code(s): 15199731 Comment: Continue allopurinol. (5) MARCELINO (nonalcoholic steatohepatitis) Current Visit: Yes Status: Acute Code(s): K75.81 - NONALCOHOLIC STEATOHEPATITIS (MARCELINO) SNOMED Code(s): 634346553 Comment: No evidence of significant liver impairment. INR wnl 09/06/16. Status and Disposition: Inpatient. Pending neurosurgery intervention. Requires continued ICU care
[2016-09-09] MEDS: Omeprazole CAP* 20 MG PO SCH (08:49)
[2016-09-09] MEDS: Losartan TAB* 25 MG PO SCH (08:49)
[2016-09-09] MEDS: Metoprolol Succinate XL TAB* 50 MG PO SCH (08:49)
[2016-09-09] MEDS: Phenytoin CAP(*) 100 MG CAP.ER PO SCH ×3 (08:49→21:36)
--- NOTE | 2016-09-09 10:38 | PN ---
Progress Note - Progress Note Date of Service: 09/09/16 SOAP: Subjective: [] Awake,alert,no complaints Drain removed Doing well Objective: []Neuro intact Dressings changed Assessment: [] Satis post op course Plan: []Transfer to 3rd floor Increase activity level
--- NOTE | 2016-09-09 16:25 | OP ---
DATE OF OPERATION: 09/07/16 - ROOM #335 DATE OF : 31 PRIMARY SURGEON: Nasim Newman MD ANESTHESIOLOGIST: Evangelina Balderas MD ANESTHESIA: General. PRE-OP DIAGNOSIS: Right chronic subdural hematoma. POST-OP DIAGNOSIS: Right chronic subdural hematoma. OPERATIVE PROCEDURE: Right frontal and parietal tavia hole drainage of subdural hematoma. DESCRIPTION OF PROCEDURE: The patient was placed on the operating table in a supine position and after satisfactory general anesthesia was obtained, the right side of the head was clipped, prepped, and draped in a sterile manner for tavia hole drainage of a large right-sided subdural hematoma. The initial preoperative plan was to make an anterior tavia hole in the mid frontal region with a second tavia hole in the upper parietal region. The initial hole was placed in the frontal region and this was done by making a skin incision 3 cm vertically, which had been infiltrated with local anesthetic. The temporalis muscle and fascia were dissected free, after which a tavia hole placed with the power drill. The dura was opened and upon opening the dura, brisk flow of maroon colored subdural fluid was noted under pressure. There was noted to be somewhat of a membrane at this level and this was resected free with a [place] 3 dissector. The subdural space was then irrigated out. Attention was then directed to the parietal area, where a skin incision was made again 3 cm in length vertically. This was done approximately 4 cm to the right of midline. A tavia hole at this level also produced good flow of subdural fluid. Upon irrigating the tavia holes, there was noted to be good communication between the 2 areas. A ventricular catheter was placed through the frontal tavia hole and tunneled back posteriorly to serve as a postoperative subdural drain. Both tavia holes were then covered with Gelfoam, after which the galea was approximated with 2-0 Vicryl and the skin closed with skin clips. The estimated blood loss was less than 50 cc. The final sponge, padding, and needle counts were correct. The patient was taken to the recovery room, extubated and in stable condition. [id number]/[facility] #: [id number] [facility]
[2016-09-09] MEDS: Atorvastatin* 20 MG TAB PO SCH (18:00)
[2016-09-10] MEDS: Acetaminophen TAB* 325 MG PO PRN (05:02)
[2016-09-10 07:40] VITALS: BP 106/75
--- NOTE | 2016-09-10 07:55 | PN ---
Progress Note - Progress Note Date of Service: 09/10/16 SOAP: Subjective: [81 year old male, s/p tavia hole for chronic SDH evacuation. POD #3. Feeling well this morning. No headache, no nausea, no other complaints. Ambulating without difficulty. Pain controlled with Tylenol. ] Objective: [ Vital Signs: Temp Pulse Resp BP Pulse Ox 98.0 F 79 16 106/75 98 09/10/16 07:33 09/10/16 07:33 09/10/16 07:33 09/10/16 07:33 09/10/16 07:33 General: Alert and oriented. No distress. Neuro: Motor and sensory intact. Incisions: Intact with aleks. No infection. Dressing removed. ] Assessment: [Satisfactory post-op .] Plan: [1. Discharge home today. 2. Discharge instructions discussed with the patient. ]
[2016-09-10] MEDS: Losartan TAB* 25 MG PO SCH (08:42)
[2016-09-10] MEDS: Omeprazole CAP* 20 MG PO SCH (08:42)
[2016-09-10] MEDS: Phenytoin CAP(*) 100 MG CAP.ER PO SCH (08:42)
[2016-09-10] MEDS: Metoprolol Succinate XL TAB* 50 MG PO SCH (08:42)
== END 2016-09-10 10:20 | disposition home or self-care (01) | DRG 25 ==
LOC: ED 13:47 → MEDTELE 16:33 → OBSVTOIN 17:10 → ICU 18:33 → SSU 09-09 12:06
PROVIDERS: ADMIT Internal Medicine; ATTEND Neurological Surgery
PROC: 009430Z Drainage of Intracranial Subdural Space with Drainage Device, Percutaneous Approach (ICD-10-PCS; principal; 2016-09-07 13:00)
DX: I62.01 Nontraumatic acute subdural hemorrhage (principal); G93.5 Compression of brain; G93.6 Cerebral edema; F05 Delirium due to known physiological condition; G81.94 Hemiplegia, unspecified affecting left nondominant side; I10 Essential (primary) hypertension; I62.03 Nontraumatic chronic subdural hemorrhage; E78.5 Hyperlipidemia, unspecified; M10.9 Gout, unspecified; K75.81 Nonalcoholic steatohepatitis (NASH); Z79.82 Long term (current) use of aspirin; Z79.899 Other long term (current) drug therapy; Z87.891 Personal history of nicotine dependence
CPT/HCPCS: 36415; 70450; 70496; 70498; 71020; 72128; 72131; 80048; 80053; 80061; 80185; 81003; 81015; 83036; 83605; 84484; 85025; 85027; 85610; 87086; 93005; 99284; A9270-GY; J0330; J0690; J2001; J2704; J3010; Q9967

== ENCOUNTER 2017-12-22 09:21 | Emergency (ER) | payer MEDICARE, OTHER ==
[2017-12-22 10:09] LABS: ABS Basophils 0 10^3/ul (0-0.2); ABS Eosinophils 0 10^3/ul (0-0.6); ABS Lymphocytes 1.5 10^3/ul (1.0-4.8); ABS Monocytes 0.8 10^3/ul (0-0.8); ABS Neutrophils 6.4 10^3/ul (1.5-7.7); ABS Nucleated RBC 0 10^3/ul; Eosinophil % 0.2 % (0-6); Hematocrit 38 % (42-52); Hemoglobin 12.7 g/dl (14.0-18.0); Mean Corpuscular HGB Conc 34 g/dl (31-36); Mean Corpuscular Hemoglobin 31 pg (27-31); Mean Corpuscular Volume 92 fL (80-94); Mean Platelet Volume 8.3 um3 (7.4-10.4); Nucleated Red Blood Cells % 0.1; Platelet Count 257 10^3/ul (150-450); Red Blood Count 4.09 10^6/ul (4.00-5.40); Red Cell Distribution Width 14 % (10.5-15); White Blood Count 8.7 10^3/ul (3.5-10.8)
[2017-12-22 10:15] LABS: INR 1.1 (0.77-1.02)
[2017-12-22 10:26] LABS: EGFR Non-African American 50.4 (>60)
[2017-12-22 10:36] LABS: Urine Appearance Cloudy; Urine Blood 3+ (Negative); Urine Color Red; Urine Ketones Trace (Negative); Urine Protein 2+(100 mg/dL) (Negative); Urine Red Blood Cell 3+(>10/hpf) (Absent); Urine Specific Gravity 1.016 (1.010-1.030); Urine Urobilinogen Negative (Negative); Urine White Blood Cell 2+(11-20/hpf) (Absent)
[2017-12-22] MEDS ORDERED: Iodixanol* (CONTRAST) 320 MG/ML 100 ML SDV IV ONE (10:37)
--- NOTE | 2017-12-22 11:43 | RAD ---
INDICATION: Painless hematuria. Lower abdominal pain. Post LEFT orchiectomy. COMPARISON: November 13, 2013 abdominal ultrasound. TECHNIQUE: Multidetector CT images were obtained from the lung bases to the ischial tuberosities without and with 100 mL Visipaque 320 IV contrast. Full precontrast as well as cortical and pyelographic phase postcontrast series. Multiplanar reformation of the pyelographic phase series. 3-D volume rendering of the pyelographic phase series. REPORT: VISUALIZED INFERIOR THORAX: Unremarkable visualized inferior thorax. LIVER / GALLBLADDER / PANCREAS / SPLEEN: Unremarkable liver, gallbladder, pancreas, spleen. ALIMENTARY TRACT: Negative for CT abnormality of the upper GI, small bowel, or diminutive medially extending appendix. Severe colonic diverticulosis most marked at the sigmoid colon without findings of acute diverticulitis. Negative for ascites or free air. Small fat-containing periumbilical hernia without inflammatory change. MESENTERIC: Unremarkable. ADRENAL / GENITOURINARY: Normal adrenal glands. Small sharply circumscribed hypodense nonenhancing cortical lesion lower pole RIGHT kidney consistent with a benign cyst. Symmetric nephrograms and pyelograms. Negative for hydronephrosis. No uroepithelial lesions of the intrarenal collecting systems or ureters evident. Negative for ureteral dilatation. Moderately distended urinary bladder is remarkable for a large burden of lobular wall thickening at the dome and bilateral sides measuring up to 2 cm in thickness. No evidence for transmural extension of tumor into the perivesicular fat. In addition there are dependent blood products within the urinary bladder. Symmetric seminal vesicles. Negative for prostatomegaly. RETROPERITONEAL: Negative for lymphadenopathy. VASCULAR: Atherosclerotic plaque of normal diameter abdominal aorta and iliac arteries. Physiologic distention of the IVC. BONES: Negative for suspicious osseous lesions. Polyarticular degenerative arthropathy. SOFT TISSUE: Unremarkable. IMPRESSION: #. 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 Dependent blood products in the urinary bladder. #. Negative for obstructive uropathy. #. Negative for lymphadenopathy. #. Severe colonic diverticulosis without findings of acute diverticulitis.
[2017-12-22] MEDS ORDERED: traMADol TAB* 50 MG PO ONE (12:48)
[2017-12-22 13:07] VITALS: BP 147/93
--- NOTE | 2017-12-22 14:14 | ED ---
GI/ HPI - HPI Summary HPI Summary: Patient is an 82-year-old male presenting to the ED with a complaint of gross hematuria since last evening. He states after lunch he developed gross hematuria with several clots over the course of the next several hours. He endorses one episode of a clot obstructing the urethra and subsequently swelling up the tip of the penis and creating lower mid abdominal pain. He states the blood clot past which caused him to feel much improved, however he continues to endorse very dark red urine with small clots. Patient is not circumcised, however has never had a balanitis or other infection. He has never had anything like this before. Denies any smoking history. Denies any known malignancy. Denies any anticoagulation medications. He states he feels otherwise well, endorsing pain at 2/10 to the lower abdomen without urinary frequency, urgency or burning. Denies any bilateral lower back pain. Denies any fevers, sweats, chills. Denies any back pain. - History of Current Complaint Chief Complaint: EDUrogenitalProblems Time Seen by Provider: 12/22/17 09:31 Stated Complaint: BLOOD IN URINE Hx Obtained From: Patient, Family/Concrete Worker Timing: Constant Severity: Moderate Pain Intensity: 3 Location of Pain: Other - lower abdomen - suprapubic region Pain Characteristics: Aching Associated Signs and Symptoms: Positive: Hematuria Additional Signs & Symptoms: Positive: Penile Swelling - since resolved Aggravating Factor(s): Voiding, Straining, Palpation Alleviating Factor(s): Nothing - Risk Factors GI Bleed Risk Factor(s): Negative Spontaneous AB Risk Factor(s): Negative Testicular Torsion Risk Factor(s): Negative - Additional Pertinent History Primary Care Physician: [id number] - Allergy/Home Medications Allergies/Adverse Reactions: Allergies Allergy/AdvReac Type Severity Reaction Status Date / Time No Known Allergies Allergy Verified 12/22/17 09:26 Home Medications: Home Medications Pioglitazone HCl 30 mg PO DAILY 12/22/17 [History Confirmed 12/22/17] PMH/Surg Hx/FS Hx/Imm Hx Previously Healthy: Yes Endocrine/Hematology History: Reports: Hx Diabetes Cardiovascular History: Reports: Hx Hypercholesterolemia, Hx Hypertension GI History: Reports: Other GI Disorders - Nonalcoholic steatohepatitis Musculoskeletal History: Reports: Hx Gout Sensory History: Reports: Hx Contacts or Glasses Denies: Hx Hearing Aid Opthamlomology History: Reports: Hx Contacts or Glasses Neurological History: Reports: Hx Headaches - intermittent starting 2 weeks ago Psychiatric History: Reports: Hx Anxiety - mild - Surgical History Surgery Procedure, Year, and Place: Left testicle removal r/t orchitis. Tonsilectomy. Adenoidectomy - Immunization History Hx Pertussis Vaccination: No Immunizations Up to Date: Yes Infectious Disease History: No Infectious Disease History: Denies: Traveled Outside the [place] in Last 30 Days - Family History Known Family History: Positive: Hypertension - Social History Occupation: Unemployed, Retired Lives: With Family Alcohol Use: Occasionally Hx Substance Use: No Substance Use Type: Reports: None Smoking Status (MU): Former Smoker Review of Systems Negative: Fever, Chills, Fatigue, Skin Diaphoresis Negative: Palpitations, Chest Pain Negative: Shortness Of Breath, Cough Positive: Abdominal Pain - suprapubic tenderness. Negative: Vomiting, Diarrhea , Nausea Positive: other - hematuria with clots Negative: Arthralgia, Myalgia Skin: Negative Neurological: Negative All Other Systems Reviewed And Are Negative: Yes Physical Exam Triage Information Reviewed: Yes Vital Signs On Initial Exam: Initial Vitals Temp Pulse Resp BP Pulse Ox 97.1 F 101 18 143/92 97 12/22/17 09:27 12/22/17 09:27 12/22/17 09:27 12/22/17 09:27 12/22/17 09:27 Vital Signs Reviewed: Yes Appearance: Positive: Well-Appearing, Well-Nourished Skin: Positive: Warm, Skin Color Reflects Adequate Perfusion Head/Face: Positive: Normal Head/Face Inspection Eyes: Positive: EOMI, GABINO, Conjunctiva Clear Neck: Positive: Supple, No Lymphadenopathy Respiratory/Lung Sounds: Positive: Clear to Auscultation, Breath Sounds Present Cardiovascular: Positive: RRR, Pulses are Symmetrical in both Upper and Lower Extremities Abdomen Description: Positive: Soft Bowel Sounds: Positive: Present Male Genital Exam: Positive: Other Neurological: Positive: Sensory/Motor Intact, Alert, Oriented to Person Place, Time, Speech Normal Psychiatric: Positive: Normal, Affect/Mood Appropriate AVPU Assessment: Alert Diagnostics - Vital Signs Vital Signs Temp Pulse Resp BP Pulse Ox 12/22/17 13:07 97.6 F 99 18 147/93 97 12/22/17 13:01 105 96 12/22/17 13:00 106 147/93 95 12/22/17 12:00 91 95 12/22/17 11:20 92 98 12/22/17 10:00 90 96 12/22/17 09:46 97 96 12/22/17 09:27 97.1 F 101 18 143/92 97 - Laboratory Lab Results: Lab Results 12/22/17 12/22/17 12/22/17 Range/Units 09:54 09:54 09:54 WBC 8.7 (3.5-10.8) 10^3/ul RBC 4.09 (4.00-5.40) 10^6/ul Hgb 12.7 L (14.0-18.0) g/dl Hct 38 L (42-52) % MCV 92 (80-94) fL MCH 31 (27-31) pg MCHC 34 (31-36) g/dl RDW 14 (10.5-15) % Plt Count 257 (150-450) 10^3/ul MPV 8.3 (7.4-10.4) um3 Neut % (Auto) 73.3 (38-83) % Lymph % (Auto) 17.0 L (25-47) % Gregg % (Auto) 9.0 H (0-7) % Eos % (Auto) 0.2 (0-6) % Baso % (Auto) 0.5 (0-2) % Absolute Neuts (auto) 6.4 (1.5-7.7) 10^3/ul Absolute Lymphs (auto) 1.5 (1.0-4.8) 10^3/ul Absolute Monos (auto) 0.8 (0-0.8) 10^3/ul Absolute Eos (auto) 0 (0-0.6) 10^3/ul Absolute Basos (auto) 0 (0-0.2) 10^3/ul Absolute Nucleated RBC 0 10^3/ul Nucleated RBC % 0.1 INR (Anticoag Therapy) 1.10 H (0.77-1.02) Sodium 133 L (135-145) mmol/L Potassium 3.8 (3.5-5.0) mmol/L Chloride 100 L (101-111) mmol/L Carbon Dioxide 22 (22-32) mmol/L Anion Gap 11 (2-11) mmol/L BUN 49 H (6-24) mg/dL Creatinine 1.35 H (0.67-1.17) mg/dL Est GFR ( Amer) 60.9 (>60) Est GFR (Non-Af Amer) 50.4 (>60) BUN/Creatinine Ratio 36.3 H (8-20) Glucose 253 H (70-100) mg/dL Calcium 9.7 (8.6-10.3) mg/dL Total Bilirubin 0.40 (0.2-1.0) mg/dL AST 20 (13-39) U/L ALT 16 (7-52) U/L Alkaline Phosphatase 90 (34-104) U/L Total Protein 7.9 (6.4-8.9) g/dL Albumin 4.0 (3.2-5.2) g/dL Globulin 3.9 (2-4) g/dL Albumin/Globulin Ratio 1.0 (1-3) Urine Color Urine Appearance Urine pH (5-9) Ur Specific [place] (1.010-1.030) Urine Protein (Negative) Urine Ketones (Negative) Urine Blood (Negative) Urine Nitrate (Negative) Urine Bilirubin (Negative) Urine Urobilinogen (Negative) Ur Leukocyte Esterase (Negative) Urine WBC (Auto) (Absent) Urine RBC (Auto) (Absent) Urine Bacteria (Absent) Urine Glucose (Negative) 12/22/17 Range/Units 10:19 WBC (3.5-10.8) 10^3/ul RBC (4.00-5.40) 10^6/ul Hgb (14.0-18.0) g/dl Hct (42-52) % MCV (80-94) fL MCH (27-31) pg MCHC (31-36) g/dl RDW (10.5-15) % Plt Count (150-450) 10^3/ul MPV (7.4-10.4) um3 Neut % (Auto) (38-83) % Lymph % (Auto) (25-47) % Gregg % (Auto) (0-7) % Eos % (Auto) (0-6) % Baso % (Auto) (0-2) % Absolute Neuts (auto) (1.5-7.7) 10^3/ul Absolute Lymphs (auto) (1.0-4.8) 10^3/ul Absolute Monos (auto) (0-0.8) 10^3/ul Absolute Eos (auto) (0-0.6) 10^3/ul Absolute Basos (auto) (0-0.2) 10^3/ul Absolute Nucleated RBC 10^3/ul Nucleated RBC % INR (Anticoag Therapy) (0.77-1.02) Sodium (135-145) mmol/L Potassium (3.5-5.0) mmol/L Chloride (101-111) mmol/L Carbon Dioxide (22-32) mmol/L Anion Gap (2-11) mmol/L BUN (6-24) mg/dL Creatinine (0.67-1.17) mg/dL Est GFR ( Amer) (>60) Est GFR (Non-Af Amer) (>60) BUN/Creatinine Ratio (8-20) Glucose (70-100) mg/dL Calcium (8.6-10.3) mg/dL Total Bilirubin (0.2-1.0) mg/dL AST (13-39) U/L ALT (7-52) U/L Alkaline Phosphatase (34-104) U/L Total Protein (6.4-8.9) g/dL Albumin (3.2-5.2) g/dL Globulin (2-4) g/dL Albumin/Globulin Ratio (1-3) Urine Color Red A Urine Appearance Cloudy Urine pH 5.0 (5-9) Ur Specific [place] 1.016 (1.010-1.030) Urine Protein 2+(100 mg/dl) A (Negative) Urine Ketones Trace A (Negative) Urine Blood 3+ A (Negative) Urine Nitrate Negative (Negative) Urine Bilirubin Negative (Negative) Urine Urobilinogen Negative (Negative) Ur Leukocyte Esterase Negative (Negative) Urine WBC (Auto) 2+(11-20/hpf) A (Absent) Urine RBC (Auto) 3+(>10/hpf) A (Absent) Urine Bacteria Absent (Absent) Urine Glucose 2+(150 mg/dl) A (Negative) Result Diagrams: 12/22/17 09:54 12/22/17 09:54 Lab Statement: Any lab studies that have been ordered have been reviewed, and results considered in the medical decision making process. GIGU Course/Dx - Course Course Of Treatment: During the course treatment, the patient is evaluated for gross painless hematuria. He does however endorses some diffuse aching to his suprapubic region, but denies any burning, urgency, or frequency. Denies any dizziness or headache. Denies any fevers, sweats, chills. Lab work obtained which shows an H&H of 12 and 38. BUN elevated. Labs otherwise WNL. During the course, he is not obstructing and immediately after urination, bladder scan obtained which shows he was not retaining. CT urogram: IMPRESSION: #. 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 Dependent blood products in. the urinary bladder. #. Negative for obstructive uropathy. #. Negative for lymphadenopathy. #. Severe colonic diverticulosis without findings of acute diverticulitis. Patient is instructed to follow up with Dr. Gaffney. I have agreed to call Dr. Gaffney's office in the morning for him for an appointment as I would like to get him in [place] due to concern of further blood clots obstructing. We will call patient back in the a.m. Patient is aware this is likely cancerous tumor, however I have stated the urologist will follow- up further. - Diagnoses Differential Diagnoses - Male: Bladder Dysfunction Provider Diagnoses: Gross hematuria, Mass of bladder Discharge - Sign-Out/Discharge Documenting (check all that apply): Patient Departure - all - Discharge Plan Condition: Stable Disposition: HOME Prescriptions: traMADol TAB* [Ultram*] 50 mg PO Q8H PRN #12 tab MDD 3 PRN Reason: Pain Patient Education Materials: Cystoscopy (DC) Referrals: Leo Grimaldo MD [Primary Care Provider] - Geovanni Gaffney MD [Medical Doctor] - Additional Instructions: Please follow up with Dr. Gaffney If you develop any obstructive symptoms as discussed - you need to return to the ED No evidence of bladder infection Tramadol up to three x daily as needed for pain I (NAVEEN Allen) will call the urology office tomorrow to try to make you an appt I will call you soon after - if you do not hear from me by 840a - please call the office yourself. You may need to have a cystoscopy so I have given you some information - Billing Disposition and Condition Condition: STABLE Disposition: Home
== END 2017-12-22 13:09 | disposition home or self-care (01) ==
LOC: ED 09:21
DX: R31.0 Gross hematuria (principal); N32.9 Bladder disorder, unspecified; E11.9 Type 2 diabetes mellitus without complications; I10 Essential (primary) hypertension; E78.00 Pure hypercholesterolemia, unspecified; M10.9 Gout, unspecified; Z79.899 Other long term (current) drug therapy; Z87.891 Personal history of nicotine dependence; R33.9 Retention of urine, unspecified
CPT/HCPCS: 36415; 74178; 76377; 80053; 81003; 81015; 85025; 85610; 87086; 99282; A9270-GY; Q9967

== ENCOUNTER 2017-12-22 18:02 | Emergency (ER) | payer MEDICARE, OTHER ==
[2017-12-22] MEDS ORDERED: Lidocaine 2% JELLY* 6 ML JELLY TOPICAL ONE ×2 (18:16→18:19)
--- NOTE | 2017-12-22 18:56 | ED ---
GI/ HPI - HPI Summary HPI Summary: The pt is a 82 y.o male presenting to the [facility] with a chief complaint of urinary blockage and pain. He is accompanied to the [facility] with one male and one female. The pt states that he was here at the [facility] earlier today and seen by the PA. He was able to urinate at the [facility] PA examination. He returned to the [facility] due to the inability to urinate again. The urinary blockage is due to blood clots in his system according to the pt. He reports hematuria since earlier today. The pt describes the severity to be a 8/10 in severity. Symptoms aggravated by nothing. Symptoms alleviated by nothing. - History of Current Complaint Chief Complaint: EDUrogenitalProblems Time Seen by Provider: 12/22/17 18:04 Stated Complaint: UNABLE TO URINATE Hx Obtained From: Patient Onset/Duration: Still Present Timing: Constant Pain Intensity: 8 Location of Pain: Other - Urogenital Additional Locations for Males: Penis Associated Signs and Symptoms: Positive: Hematuria Aggravating Factor(s): Nothing Alleviating Factor(s): Nothing - Additional Pertinent History Primary Care Physician: [id number] - Allergy/Home Medications Allergies/Adverse Reactions: Allergies Allergy/AdvReac Type Severity Reaction Status Date / Time No Known Allergies Allergy Verified 12/22/17 09:26 PMH/Surg Hx/FS Hx/Imm Hx Endocrine/Hematology History: Reports: Hx Diabetes Cardiovascular History: Reports: Hx Hypercholesterolemia, Hx Hypertension GI History: Reports: Other GI Disorders - Nonalcoholic steatohepatitis Musculoskeletal History: Reports: Hx Gout Sensory History: Reports: Hx Contacts or Glasses Denies: Hx Hearing Aid Opthamlomology History: Reports: Hx Contacts or Glasses Neurological History: Reports: Hx Headaches - intermittent starting 2 weeks ago Psychiatric History: Reports: Hx Anxiety - mild - Surgical History Surgery Procedure, Year, and Place: Left testicle removal r/t orchitis. Tonsilectomy. Adenoidectomy Infectious Disease History: No Infectious Disease History: Denies: Traveled Outside the [place] in Last 30 Days - Family History Known Family History: Positive: Hypertension, Other - Anxiety - Social History Alcohol Use: Occasionally Substance Use Type: Reports: None Smoking Status (MU): Former Smoker Review of Systems Constitutional: Negative Eyes: Negative ENT: Negative Cardiovascular: Negative Respiratory: Negative Gastrointestinal: Negative Genitourinary: Other - Urogenital pain Positive: hematuria Musculoskeletal: Negative Skin: Negative Neurological: Negative Psychological: Normal All Other Systems Reviewed And Are Negative: Yes Physical Exam - Summary Physical Exam Summary: Appearance: The patient is well-nourished in no acute distress and in no acute pain. Skin: The skin is warm and dry and skin color reflects adequate perfusion. HEENT: The head is normocephalic and atraumatic. The pupils are equal and reactive. The conjunctivae are clear and without drainage. Nares are patent and without drainage. Mouth reveals moist mucous membranes and the throat is without erythema and exudate. The external ears are intact. The ear canals are patent and without drainage. The tympanic membranes are intact. Neck: The neck is supple with full range of motion and non-tender. There are no carotid bruits. There is no neck vein distension. Respiratory: Chest is non-tender. Lungs are clear to auscultation and breath sounds are symmetrical and equal. Cardiovascular: Heart is regular rate and rhythm. There is no murmur or rub auscultated. There is no peripheral edema and pulses are symmetrical and equal. Abdomen: The abdomen is soft and non-tender. There are normal bowel sounds heard in all four quadrants and there is no organomegaly palpated. Genitourinary: Blood clot at his urethral meatus; Phimosis Musculoskeletal: There is no back tenderness noted. Extremities are non-tender with full range of motion. There is good capillary refill. There is no peripheral edema or calf tenderness elicited. Neurological: Patient is alert and oriented to person, place and time. The patient has symmetrical motor strength in all four extremities. Cranial nerves are grossly intact. Deep tendon reflexes are symmetrical and equal in all four extremities. Psychiatric: The patient has an appropriate affect and does not exhibit any anxiety or depression Triage Information Reviewed: Yes Vital Signs On Initial Exam: Initial Vitals Temp Pulse Resp BP Pulse Ox 96.8 F 116 20 176/101 96 12/22/17 18:12 12/22/17 18:12 12/22/17 18:12 12/22/17 18:12 12/22/17 18:12 Vital Signs Reviewed: Yes Diagnostics - Vital Signs Vital Signs Temp Pulse Resp BP Pulse Ox 12/22/17 18:12 96.8 F 116 20 176/101 96 - Laboratory Lab Statement: Any lab studies that have been ordered have been reviewed, and results considered in the medical decision making process. GIGU Course/Dx - Course Course Of Treatment: Mr. Weaver was seen here earlier in the day and diagnosed with a bladder mass that was bleeding. At that point he was able to urinate fine and therefore he was discharged to follow up with Dr. Gaffney tomorrow. He became unable to urinate after passing a clot and returned. On exam he clearly had a clot at the meatus and I placed a 3-way irrigating catheter. He was irrigated for a couple of hours and his urine was still running pink but he was feeling fine and wanted to attempt another outpatient treatment until following up tomorrow. It is possible that he may have to return if the Dunaway gets obstructed and he is aware of that. - Diagnoses Provider Diagnoses: Gross hematuria, Urinary retention Discharge - Sign-Out/Discharge Documenting (check all that apply): Patient Departure - Discharge home - Discharge Plan Condition: Stable Disposition: HOME Patient Education Materials: Urinary Retention in Men (ED), Dunaway Catheter Placement and Care (ED) Referrals: Leo Grimaldo MD [Primary Care Provider] - Additional Instructions: Follow up with Urologist tomorrow. - Billing Disposition and Condition Condition: STABLE Disposition: Home - Attestation Statements Document Initiated by Scribe: Yes Documenting Scribe: Teddy Waterman Provider For Whom Carlee is Documenting (Include Credential): Dr. Danilo Reyes Attestation: eTddy Egan, scribed for Dr. Danilo Martinez on 12/22/17 at 2159. Scribe Documentation Reviewed: Yes Provider Attestation: The documentation as recorded by the Teddy reyes accurately reflects the service I personally performed and the decisions made by me, Dr. Danilo Martinez
[2017-12-22 21:46] VITALS: BP 166/101
== END 2017-12-22 21:45 | disposition home or self-care (01) ==
LOC: ED 18:02
DX: R31.0 Gross hematuria (principal); R33.9 Retention of urine, unspecified; Z87.891 Personal history of nicotine dependence; I10 Essential (primary) hypertension
CPT/HCPCS: 99282

== ENCOUNTER 2017-12-25 09:09 | Day surgery (SDC) | payer MEDICARE, OTHER ==
--- NOTE | 2017-12-23 16:46 | HP ---
CC: Dr. Grimaldo * DATE OF ADMISSION: 12/25/2017. AGE: 82-year-old male. ADMITTING DIAGNOSES: 1. Gross hematuria. 2. Bladder tumors. PLANNED PROCEDURE: Cystoscopy, transurethral resection of bladder tumors, possible bilateral stent insertions (decision to be made intraoperatively). SURGEON: Dr. Geovanni Gaffney. HISTORY OF PRESENT ILLNESS: Brendon Weaver is an 82-year-old gentleman who had been to the emergency room on two separate occasions over the weekend with complaints of gross hematuria and clot retention. He eventually had a three way Dunaway catheter placed in the emergency room and was evaluated by me. A CT scan had been done in the emergency room which was consistent with multiple large bladder tumors. There is no hydronephrosis. PAST MEDICAL HISTORY: Significant for: 1. Diabetes mellitus. 2. Hypertension. 3. High cholesterol. 4. History of subdural hematoma. PAST SURGICAL HISTORY: Significant for craniotomy for subdural hematoma in 2016 and left orchiectomy about 18 to 20 years ago (appears to have been for benign reasons, probably left scrotal abscess). MEDICATIONS ON ADMISSION: 1. Losartan/Hydrochlorothiazide 50/12.5 one tablet daily. 2. Metoprolol 50 mg daily. 3. Atorvastatin 20 mg daily. 4. Omeprazole 20 mg daily. 5. Pioglitazone (anti-diabetic) 30 mg daily. ALLERGIES: No known drug allergies. SMOKING HISTORY: He is a former smoker who quit 40 years ago and had a ten pack smoking history prior to that. REVIEW OF SYSTEMS: He is a pleasant, elderly gentleman. He denies any chest pain or shortness of breath. He is fairly active physically. PHYSICAL EXAMINATION GENERAL: Pleasant, elderly gentleman. VITAL SIGNS: Blood pressure 120/80, pulse 95 per minute regular, oxygen saturation 98 percent on room air, temperature 96.6. CARDIOVASCULAR: Regular rate and rhythm. S1, S2. LUNGS: Clear bilaterally. ABDOMEN: Soft without masses. GENITALIA: Right testicle is descended and normal, the left is absent. Phallus is uncircumcised with a moderate degree of phimosis. A Dunaway catheter is in place currently draining clear urine. IMPRESSION/PLAN: I had a detailed discussion with the patient and his accompanying family. He is coming to the office for a flexible cystoscopy on December 24 to make sure that what is seen on the CT is indeed a bladder tumor and not multiple blood clots, and if this is consistent with the CT description , then the plan will be to go ahead with cystoscopy, transurethral resection of bladder tumors and possible bilateral stent insertion. [id number]/[facility] #: [id number] MTDD
[~2017-12-25 09:09] MED LIST: Buffered Lidocaine 0.9% SYRIN* 5 ML/SYR SYRINGE INTRADERM ONE
[2017-12-25] MEDS ORDERED: cefTRIAXone(*) 2 GM ADDV.VIAL IVPB ONE (09:18)
[2017-12-25] MEDS ORDERED: Propofol* 500 MG/50 ML BTL ONE (10:31)
[2017-12-25] MEDS ORDERED: Lidocaine 2% PF * 5 ML VIAL ONE ×3 (10:31→11:41)
[2017-12-25] MEDS ORDERED: Propofol* 10 MG/ML 20 ML BTL IV PUSH ONE (10:31)
[2017-12-25] MEDS ORDERED: Iohexol 180 (CONTRAST) 10 ML SDV IV ONE ×2 (10:45→10:48)
[2017-12-25] MEDS ORDERED: Bupivacaine 0.5% SDV PF* 30ML VIAL ONE (10:45)
[2017-12-25] MEDS ORDERED: Phenylephrine INJ* 10 MG/ML 1 ML VIAL (10 MG) ONE ×2 (11:02→11:30)
[2017-12-25] MEDS ORDERED: Midazolam* 1 MG/ML 5 ML VIAL (5 MG) ONE (11:05)
[2017-12-25] MEDS ORDERED: Insulin REGULAR(*) 1 UNITS UNIT ONE ×2 (11:56→12:00)
[2017-12-25] MEDS ORDERED: Acetaminophen IV 1GM/100ML * 1,000 MG/100 ML VIAL IVPB ONE (11:57)
[2017-12-25] MEDS ORDERED: Naloxone* 0.4 MG/ML 1 ML VIAL IV PRN (11:57)
[2017-12-25] MEDS ORDERED: Ondansetron INJ* 2 MG/ML VIAL IV PRN (11:57)
[2017-12-25] MEDS ORDERED: fentaNYL* 50 MCG/ML 2 ML VIAL (100 MCG VIAL) ONE (12:17)
[2017-12-25] MEDS ORDERED: Furosemide IV* 10 MG/ML 2 ML VIAL (20 MG) ONE ×2 (12:20→12:58)
[2017-12-25] MEDS ORDERED: Acetaminophen IV 1GM/100ML * 0 ML ONE (12:42)
[2017-12-25] MEDS ORDERED: Acetaminophen IV 1GM/100ML * 100 ML ONE (12:47)
[2017-12-25] MEDS ORDERED: Lidocaine 2% JELLY* 6 ML JELLY TOPICAL ONE (13:11)
[2017-12-25 14:00] VITALS: BP 151/89
--- NOTE | 2017-12-26 22:35 | OP ---
CC: Dr. Leo Grimaldo; Dr. Gaffney* OPERATIVE REPORT: DATE OF OPERATION: 12/25/17 - [facility] DATE OF : 31 SURGEON: Geovanni aGffney MD ANESTHESIOLOGIST: Dr. Segundo. ANESTHESIA: General. PRE-OP DIAGNOSIS: Large multiple bladder tumors. POST-OP DIAGNOSIS: Large multiple bladder tumors. OPERATIVE PROCEDURE: Cystoscopy, transurethral resection and fulguration of multiple bladder tumors (6 to 7 cm aggregate). COMPLICATIONS: None. BLOOD LOSS: Approximately 150 cc. SPECIMEN: Bladder tumors. INDICATIONS: Brendon Weaver is an 82-year-old gentleman who was evaluated for gross hematuria. CT scan revealed multiple large bladder tumors and flexible cystoscopy in the office revealed an appearance consistent with superficial carcinoma. OPERATIVE FINDINGS: 1. Ckuj-ey-oyutoryrzg enlarged prostate. 2. 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 DESCRIPTION OF PROCEDURE: After induction of general anesthesia, the patient was placed in dorsal lithotomy position. Sequential compression devices were in place and functioning. The patient was initially noted to have a fairly severe phimosis with only a thin point opening noted (I had noticed this in the office also). The foreskin was carefully stretched in order to facilitate insertion of the cystoscope. The urethra was unremarkable. There was some degree of prostate enlargement noted. The bladder was examined. The right and left ureteral orifices were in normal position with clear efflux. There were no tumors in the vicinity of the trigone. There were multiple large papillary tumors located throughout the bladder pearce , pretty much occupying all of the areas except the trigone. I did not plan to do a complete resection in one session and I had discussed this with the patient already. Using the resectoscope, I attempted to resect most of the tumors from the anterior and the posterior bladder pearce. Some of these tumors, as expected, were quite vascular and required judicious use of electrocautery to try to control the bleeding without causing too much thermal artifact during the resection. At the end of the procedure, probably 60% to 70 % of the tumor burden had been resected. There was no evidence of bladder perforation and hemostasis appeared satisfactory. 24-[place] Dunaway was placed for temporary bladder drainage. The patient tolerated the procedure satisfactorily and was transferred back to the recovery area in stable condition. My plan is to bring him back at some point in 3 to 4 weeks for a second procedure to completely resect any remaining tumors and also to consider either a dorsal split or a circumcision at that time to address the severe phimosis. [id number]/[facility] #: [id number] MTDD
== END 2017-12-25 14:21 | disposition home or self-care (01) ==
LOC: OR 09:09
PROVIDERS: ATTEND Urology
DX: C67.8 Malignant neoplasm of overlapping sites of bladder (principal); R31.0 Gross hematuria; N40.0 Benign prostatic hyperplasia without lower urinary tract symptoms; E11.9 Type 2 diabetes mellitus without complications; Z79.84 Long term (current) use of oral hypoglycemic drugs; I10 Essential (primary) hypertension; E78.00 Pure hypercholesterolemia, unspecified; Z87.891 Personal history of nicotine dependence; N47.1 Phimosis
CPT/HCPCS: 88305; J0696; J1940; J2250; J2704; J3010

== ENCOUNTER → 2018-07-16 05:31 | Day surgery (SDC) | payer MEDICARE, OTHER ==
--- NOTE | 2018-07-15 13:06 | HP ---
CC: Dr. Grimaldo * DATE OF ADMISSION: 07/16/2018. AGE: 83-year-old male. ADMITTING DIAGNOSIS: Recurrent bladder tumors. PLANNED PROCEDURE: Transurethral resection of multiple bladder tumors. SURGEON: Dr. Gaffney. HISTORY OF PRESENT ILLNESS: Brendon Weaver is an 83-year-old gentleman who had initially been evaluated and treated about six to seven months ago for multiple superficial high grade bladder tumors. He had subsequently undergone treatment with intravesical BCG treatment and a recent cystoscopy revealed multiple recurrent superficial-appearing bladder tumors. PAST MEDICAL HISTORY: Significant for: 1. Superficial bladder cancer. 2. Diabetes mellitus. 3. Hypertension. 4. History of subdural hematoma. 5. High cholesterol. MEDICATIONS ON ADMISSION: 1. Omeprazole 20 mg a day. 2. Losartan-Hydrochlorothiazide 50-12.5 daily. 3. Metoprolol 50 mg once a day. 4. Troglitazone 30 mg daily. 5. Amoxicillin one tablet b.i.d. (for recent UTI). ALLERGIES: No known drug allergies. FAMILY HISTORY: There is no family history of bladder cancer. SMOKING HISTORY: He is a former smoker who quit about 40 years ago and had about a ten pack year smoking history prior to that. REVIEW OF SYSTEMS: He is otherwise in excellent health, especially for this age. He denies any chest pain or shortness of breath. PHYSICAL EXAMINATION GENERAL: Pleasant, elderly gentleman. VITAL SIGNS: Blood pressure 140/88, pulse 78 per minute and regular, temperature 96.8, oxygen saturation 98 percent on room air. CARDIOVASCULAR: Regular rate and rhythm, S1, S2. LUNGS: Clear bilaterally. ABDOMEN: Soft without masses. IMPRESSION: 83-year-old gentleman with recurrent multiple bladder tumors which appear superficial visually. PLAN: Cystoscopy and transurethral resection of bladder tumors. [id number]/[facility] #: [id number] MTDD
[~2018-07-16 05:31] MED LIST changes: +Acetaminophen TAB* 325 MG ONE; +Acetaminophen TAB* 325 MG PO PRN; -Buffered Lidocaine 0.9% SYRIN* 5 ML/SYR SYRINGE INTRADERM ONE; +Buffered Lidocaine 1% SYRIN* 1 ML/SYRINGE INTRADERM ONE; +Dexamethasone IV* 4 MG/ML 1 ML (4 MG) ONE; +DiMENhydriNATE IV* 50 MG/ML VIAL IV PUSH PRN; +EPHEDrine (Pressors)* 50 MG/ML VIAL ONE; +Glycopyrrolate IV* 0.2 MG/ML 1 ML VIAL ONE; +Insulin REGULAR(*) 1 UNITS UNIT ONE; +Lactated Ringers 1000 ML Bag* 1,000 ML IV SCH; +Lidocaine 2% JELLY* 6 ML JELLY TOPICAL ONE; +Lidocaine 2% PF * 5 ML VIAL ONE; +Midazolam* 1 MG/ML 2 ML VIAL (2 MG) ONE; +Naloxone* 0.4 MG/ML 1 ML VIAL IV PRN; +Neostigmine Methylsulfate* 1 MG/ML 10 ML VIAL (1 mg/ml) ONE; +Ondansetron INJ* 2 MG/ML VIAL ONE; +Phenylephrine 10 MG/ML VIAL* 1 ML VIAL ONE; +Propofol* 10 MG/ML 20 ML BTL ONE; +Rocuronium* 10 MG/ML VIAL ONE; +Succinylcholine* 20 MG/ML 10 ML VIAL ONE; +cefTRIAXone(*) 2 GM ADDV.VIAL IVPB ONE; +fentaNYL* 50 MCG/ML 2 ML VIAL (100 MCG VIAL) IV PRN; +fentaNYL* 50 MCG/ML 2 ML VIAL (100 MCG VIAL) ONE; +oxyCODONE TAB* 5 MG TAB PO PRN
--- NOTE | 2018-07-16 10:34 | OP ---
CC: Dr. Grimaldo * DATE OF OPERATION: 07/16/18 - [facility] DATE OF : 31 SURGEON: Geovanni Gaffney MD. ANESTHESIOLOGIST: Dr. Segundo. ANESTHESIA: General. PRE-OP DIAGNOSIS: Bladder cancer. POST-OP DIAGNOSIS: Bladder cancer. OPERATIVE PROCEDURES: 1. Cystoscopy. 2. Transurethral resection and fulguration of multiple bladder tumors ( aggregate 6 to 7 cm). COMPLICATIONS: None. POSTOPERATIVE CONDITION: Stable. ESTIMATED BLOOD LOSS: Approximately 50 cc. 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 INDICATIONS: Brendon Weaver is an 83-year-old gentleman with a history of multiple recurrent superficial bladder tumors, who is now being brought in for transurethral resection of the same. DESCRIPTION OF PROCEDURE: After induction of general anesthesia, the patient was placed in dorsal lithotomy position. Sequential compression devices were in place and functioning. Initial cystoscopy revealed a normal-appearing urethra , mildly enlarged prostate. The bladder was examined. The right and left ureteral orifices were normal in position and configuration. Scattered throughout the lateral pearce and the posterior bladder wall were multiple superficial papillary tumors. There was no evidence of any muscle invasive appearing tumor at least on visual examination. Using the resectoscope, all of the visible tumors were carefully resected, separately deeper resection was carried out and the specimen was separately labeled and sent for histopathology. There was no evidence of bladder perforation and hemostasis appeared satisfactory. At the end of the procedure, I could not visualize any remaining bladder tumors and 24-[place] Dunaway was placed without difficulty and connected to drainage bag. He would certainly require another round of intravesical immunotherapy with BCG treatments, which will be started in 4 to 6 weeks. The patient tolerated the procedure satisfactorily and was transferred back to the recovery area in stable condition. [id number]/[facility] #: [id number] [facility]
[2018-07-16 11:04] VITALS: BP 122/90
== END | disposition home or self-care (01) ==
LOC: OR 05:31
PROVIDERS: ATTEND Urology
DX: C67.9 Malignant neoplasm of bladder, unspecified (principal); E11.9 Type 2 diabetes mellitus without complications; Z87.891 Personal history of nicotine dependence; Z85.51 Personal history of malignant neoplasm of bladder; I10 Essential (primary) hypertension; E78.00 Pure hypercholesterolemia, unspecified
CPT/HCPCS: 88305; A9270-GY; J0330; J0696; J1100; J2250; J2405; J2704; J2710; J3010

== ENCOUNTER → 2018-12-01 05:56 | Day surgery (SDC) | payer MEDICARE, OTHER ==
--- NOTE | 2018-11-26 19:35 | HP ---
CC: Dr. 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 PLANNED PROCEDURE: Cystoscopy, transurethral resection of bladder tumors. SURGEON: Dr. Gaffney. HISTORY OF PRESENT ILLNESS: Brendon Weaver is an 83-year-old gentleman who had originally been evaluated in December of 2017 for extensive superficial bladder tumors (practically entire bladder was involved with multiple superficial low- grade papillary tumors). He had undergone transurethral resection on a couple of occasions and subsequently had intravesical BCG treatments. He recently underwent a followup cystoscopy and was noted to have multiple recurrent tumors , all of which still appear visually superficial with no evidence of any invasive appearing tumor. A CT urogram was repeated to make sure there was no involvement of the kidneys or ureters and none was noted. PAST MEDICAL HISTORY: Significant for: 1. High-graded multiple superficial bladder tumors. 2. Hypertension. 3. Diabetes mellitus type 2. 4. History of high cholesterol. 5. History of subdural hematoma. MEDICATIONS ON ADMISSION: 1. Losartan/hydrochlorothiazide 50/12.5 one tablet daily. 2. Omeprazole 20 mg daily. 3. Troglitazone 30 mg daily. 4. Metoprolol 50 mg daily. ALLERGIES: No known drug allergies. FAMILY HISTORY: There is no family history of bladder cancer. SOCIAL HISTORY: Smoking history: He is a former smoker with about a 10- to 12 - pack year smoking history, although he quit over 40 years ago. REVIEW OF SYSTEMS: He is otherwise in very good health and is still fairly active physically. He denies any chest pain or shortness of breath. PHYSICAL EXAMINATION GENERAL: Reveals a pleasant elderly gentleman. VITAL SIGNS: Blood pressure is 124/80, pulse 86 per minute and regular, oxygen saturation 98% on room air, temperature 96.4. LUNGS: Clear bilaterally. CARDIOVASCULAR: Regular rate and rhythm. S1, S2. ABDOMEN: Soft without masses. IMPRESSION AND PLAN: An 83-year-old gentleman who had initially presented with multiple large superficial bladder tumors and who now presents with recurrent bladder tumors (visually all of which appear superficial) and is now being brought in for transurethral resection of the bladder tumors. [id number]/[facility] #: [id number] [facility]
[~2018-12-01 05:56] MED LIST changes: -Acetaminophen TAB* 325 MG ONE; -Acetaminophen TAB* 325 MG PO PRN; +Famotidine IV* 10 MG/ML 2 ML (20 mg) IV ONE; +Famotidine IV* 10 MG/ML 2 ML (20 mg) ONE; +Furosemide IV* 10 MG/ML 2 ML VIAL (20 MG) ONE; -Glycopyrrolate IV* 0.2 MG/ML 1 ML VIAL ONE; -Lidocaine 2% JELLY* 6 ML JELLY TOPICAL ONE; -Midazolam* 1 MG/ML 2 ML VIAL (2 MG) ONE; +Midazolam* 1 MG/ML 5 ML VIAL (5 MG) ONE; -Neostigmine Methylsulfate* 1 MG/ML 10 ML VIAL (1 mg/ml) ONE; +Ondansetron ODT TAB* 4 MG ONE; +Ondansetron ODT TAB* 4 MG PO ONE; -Phenylephrine 10 MG/ML VIAL* 1 ML VIAL ONE; +Phenylephrine 40 MCG/ML SYRINGE ONE; -Rocuronium* 10 MG/ML VIAL ONE; -Succinylcholine* 20 MG/ML 10 ML VIAL ONE; +VASOPRESSIN 20 UNITS/ML 1 ML VIAL ONE; -oxyCODONE TAB* 5 MG TAB PO PRN
[2018-12-01 06:54] LABS: INR 1.01 (0.82-1.09)
[2018-12-01 10:27] VITALS: BP 129/82
--- NOTE | 2018-12-01 11:36 | OP ---
CC: Dr. Leo Grimaldo * DATE OF OPERATION: 12/01/18 - [facility] DATE OF : 31 SURGEON: Geovanni Gaffney MD. ANESTHESIOLOGIST: Dr. Craig. ANESTHESIA: General. PRE-OP DIAGNOSIS: Recurrent multiple bladder tumors. POST-OP DIAGNOSIS: Recurrent multiple bladder tumors. OPERATIVE PROCEDURE: Cystoscopy, transurethral resection, and fulguration of multiple bladder tumors (5 to 6 cm aggregate). COMPLICATIONS: None. ESTIMATED BLOOD LESS: Less than 25 cc. SPECIMEN: Bladder tumors (superficial as well as deeper resection). POSTOPERATIVE CONDITION: Stable. INDICATIONS: Brendon Weaver Sr. is an 83-year-old gentleman with a history of recurrent multiple superficial bladder tumors consistent with transitional cell carcinoma of the bladder. DESCRIPTION OF PROCEDURE: After induction of general anesthesia, the patient was placed on the operating table in dorsal lithotomy position. Sequential compression devices were in place and functioning. Initial evaluation revealed a normal-appearing urethra and a mildly large prostate. The bladder was examined. The right and left ureteral orifices were normal in position and configuration. There were multiple recurrent tumors and largest being in the area of the right lateral wall with additional smaller tumors located on the left lateral wall and in the posterior bladder wall. Transurethral resection of bladder tumors was carried out in standard fashion. After the superficial part of all of the tumors had been resected and sent separately for histopathology. Deeper resection was carried out. All of the visible tumors were completely resected and there was no evidence of bladder perforation. At the end of the procedure, hemostasis was secured using the coagulation current. At the end of the procedure, there were no remaining visible tumors and no evidence of bladder perforation and satisfactory hemostasis. The resected tissue was removed from the bladder using the Ellik evacuator and sent for histopathology. At the end, 22-[place] Dunaway was placed for temporary bladder drainage. The patient tolerated the procedure satisfactorily and was transferred back to the recovery area in stable condition. [id number]/[facility] #: [id number] [facility]
== END | disposition home or self-care (01) ==
LOC: OR 05:56
PROVIDERS: ATTEND Urology
DX: C67.2 Malignant neoplasm of lateral wall of bladder (principal); I10 Essential (primary) hypertension; Z87.891 Personal history of nicotine dependence; E11.9 Type 2 diabetes mellitus without complications; Z79.84 Long term (current) use of oral hypoglycemic drugs; E78.00 Pure hypercholesterolemia, unspecified; M10.9 Gout, unspecified
CPT/HCPCS: 36415; 82947; 85610; 88305; A9270-GY; J0696; J1100; J1940; J2250; J2405; J2704; J3010